=== PATIENT | male | born 1945 | race Caucasian/White ===

== ENCOUNTER 2017-04-14 13:18 | Emergency (ER) | payer MEDICARE, MEDICAID ==
[2017-04-14] MEDS ORDERED: Sodium Chloride 0.9% 10 ML Syringe FLUSH PRN (13:59)
[2017-04-14] MEDS ORDERED: Ondansetron 4 MG/2 ML SDV IVPUSH ONE (14:01)
--- NOTE | 2017-04-14 14:50 | CT ---
CT chest Technique: Multiple axial sections were obtained from above the lung apices inferiorly through the lung bases. Intravenous contrast was not utilized. Comparison: No previous chest imaging. Findings: Small mediastinal lymph nodes are seen which appear within normal limits. Mild ectasia of the ascending aorta is seen with AP dimension of 3.6 cm. No pericardial thickening is seen. Emphysematous changes are present. Slight scarring is noted within the medial right lung base. 2 small subpleural nodules are seen within the right middle lobe with largest measuring 6 mm. Very small subpleural nodule is noted within the left upper chest measuring 2 mm. Lungs otherwise are clear. No pulmonary contusion is seen. No pleural effusions or pneumothorax are identified. Bone window settings were reviewed which shows no acute rib fracture. Vertebral body heights appear maintained on the reconstructed sagittal images. Impression: 1. Several small subpleural nodules. Follow-up chest CT could be obtained in 9 months to confirm stability. Follow-up would occur in December,. 2. Emphysematous change. 3. Nothing acute is seen on CT study of the chest. Diagnostic code #9 CT abdomen and pelvis Technique: Multiple axial sections were obtained from above the dome of the diaphragm inferiorly through the pubic symphysis. Intravenous and oral contrast were not utilized. Comparison: No prior abdominal imaging. Findings: Multiple low density lesions are identified within the right and left lobes of the liver which have Hounsfield unit measurements of cysts. Largest cyst is located within the dome of the right lobe measuring approximately 2.8 cm. Spleen appears within normal limits. Adrenal glands are unremarkable. Pancreas appears normal. Cyst is identified within the right kidney measuring 2.1 cm. No hydronephrosis is seen of either kidney. Pancreas appears within normal limits. Small calcifications are seen within the head of the pancreas which is likely incidental. Gallbladder shows no calcified gallstones. Aorta contains mild atherosclerotic change but no aneurysm is seen. No retroperitoneal adenopathy or mesenteric abnormalities are seen. Diverticuli are seen within the descending and sigmoid colon without inflammatory change of diverticulitis. Right-sided bladder diverticula is identified which contains a small calcified bladder stone. This bladder diverticula measures 2.5 cm. Other calcifications are seen within the dependent portion of the bladder. Prostate gland is enlarged and contains calcifications. No inflammatory change or free fluid is seen. Appendix not visualized with certainty. Bone window settings appear within normal limits for the patient's age. Impression: 1. Multiple liver cysts. Cyst within the right kidney. 2. Other incidental findings. 3. Nothing acute is seen on CT study of the abdomen and pelvis. Diagnostic code #2
[2017-04-14] MEDS ORDERED: Sodium Chloride 0.9% 1,000 ML IV ONE ×2 (16:41→18:00)
[2017-04-14] MEDS ORDERED: cefTRIAXone 2 GM in Sodium Chloride 0.9% 100 ML IV ONE (17:38)
--- NOTE | 2017-04-14 17:59 | EDM.PDOC ---
ED HPI GENERAL MEDICAL PROBLEM - General Chief Complaint: Genitourinary Problem Stated Complaint: POSS. KIDNEY INFECTION Time Seen by Provider: 04/14/17 13:52 Source of Information: Reports: Patient History Limitations: Reports: No Limitations - History of Present Illness INITIAL COMMENTS - FREE TEXT/NARRATIVE: The patient presents from [facility] with acute renal failure. The patient says about 1 week ago he developed diarrhea and nausea. He had very little appetite. She has gotten weak with it. He also had a horse squish his chest in a trailer a few days after these symptoms started. He has left sided chest pain and upper abdominal pain with movement with that. He had no fever, chills , cough, congestion, runny nose, vomiting or dysuria. His baseline creatinine from October was 1.59. He has never had trouble with his kidneys as far as he knows. Onset: Gradual Duration: Week(s): (1) Location: Reports: Chest, Abdomen Quality: Reports: Sharp Severity: Mild Improves with: Reports: Immobilization Worsens with: Reports: Movement Context: Reports: Trauma Associated Symptoms: Reports: Chest Pain, Nausea/Vomiting. Denies: Fever/Chills , Headaches, Shortness of Breath Treatments SYSTEM DESIGNER: Reports: Other (see below) Other Treatments SYSTEM DESIGNER: labs, CXR - Related Data Allergies Allergy/AdvReac Type Severity Reaction Status Date / Time No Known Allergies Allergy Verified 04/14/17 14:00 Past Medical History HEENT History: Reports: Impaired Vision, Other (See Below) Other HEENT History: waxy ears Cardiovascular History: Reports: High Cholesterol, Hypertension, Other (See Below) Other Cardiovascular History: artery thickening, PAD Gastrointestinal History: Reports: GERD Genitourinary History: Reports: Prostate Disorder, Other (See Below) Other Genitourinary History: currently in renal failure Musculoskeletal History: Reports: Arthritis Psychiatric History: Reports: Depression - Past Surgical History HEENT Surgical History: Reports: Tonsillectomy Social & Family History - Family History Family Medical History: Noncontributory - Tobacco Use Smoking Status *Q: Never Smoker - Caffeine Use Caffeine Use: Reports: Coffee - Recreational Drug Use Recreational Drug Use: No ED ROS GENERAL - Review of Systems Review Of Systems: See Below Constitutional: Reports: Malaise, Weakness, Fatigue. Denies: Fever, Chills HEENT: Reports: No Symptoms Respiratory: Reports: No Symptoms Cardiovascular: Reports: Chest Pain Endocrine: Reports: No Symptoms GI/Abdominal: Reports: Abdominal Pain, Diarrhea, Nausea. Denies: Vomiting : Reports: No Symptoms Musculoskeletal: Reports: No Symptoms ED EXAM, GI/ABD - Physical Exam Exam: See Below Exam Limited By: No Limitations General Appearance: Alert, No Apparent Distress Ears: Normal External Exam Nose: Normal Inspection Head: Atraumatic, Normocephalic Neck: Normal Inspection Respiratory/Chest: No Respiratory Distress, Lungs Clear, Normal Breath Sounds, Other (Mild pain upon palpation to the left lateral chest) Cardiovascular: Regular Rate, Rhythm, No Edema, No Murmur GI/Abdominal Exam: Soft, No Organomegaly, No Mass, Tender (Mild tenderness to the left upper quadrant) Back Exam: Normal Inspection Extremities: Normal Inspection EKG INTERPRETATION EKG Date: 04/14/17 Time: 11:36 Rhythm: NSR Rate (Beats/Min): 65 [place]: Normal P-Wave: Present QRS: RBBB ST-T: Normal QT: Normal VT/PQ Interval: 1st degree HB Course - Vital Signs Last Recorded V/S: Last Vital Signs Temp 97.5 F 04/14/17 13:49 Pulse 62 04/14/17 13:49 Resp 20 04/14/17 13:49 BP 105/60 04/14/17 13:49 Pulse Ox 97 04/14/17 13:49 - Orders/Labs/Meds Orders: Active Orders 24 hr Category Date Time Status Cardiac Monitoring [RC] . DIRECTED Care 04/14/17 13:59 Active Peripheral IV Care [RC] . DIRECTED Care 04/14/17 14:00 Active CULTURE URINE [RM] Stat Lab 04/14/17 17:34 Uncollected Sodium Chloride 0.9% [Normal Saline] 1,000 ml Med 04/14/17 18:00 Active IV ONETIME Sodium Chloride 0.9% [Saline Flush] Med 04/14/17 13:59 Active 10 ml FLUSH ASDIRECTED PRN cefTRIAXone [Rocephin] 2 gm Med 04/14/17 17:38 Active Sodium Chloride 0.9% [Normal Saline] 100 ml IV ONETIME Peripheral IV Insertion Adult [OM.PC] Stat Oth 04/14/17 13:59 Ordered Medication Orders Ceftriaxone Sodium 2 gm/ (Sodium Chloride) 100 mls @ 200 mls/hr IV ONETIME ONE Stop: 04/14/17 18:07 Sodium Chloride (Normal Saline) 1,000 mls @ 1,000 mls/hr IV ONETIME ONE Stop: 04/14/17 18:59 Sodium Chloride (Saline Flush) 10 ml FLUSH ASDIRECTED PRN PRN Reason: Keep Vein Open Last Admin: 04/14/17 15:00 Dose: 10 ml Labs: Laboratory Tests 04/14/17 04/14/17 04/14/17 Range/Units 15:00 15:00 16:36 WBC 13.22 H (4.23-9.07) K/mm3 RBC 4.71 (4.63-6.08) M/mm3 Hgb 14.2 (13.7-17.5) gm/L Hct 41.5 (40.1-51.0) % MCV 88.1 (79.0-92.2) fl MCH 30.1 (25.7-32.2) pg MCHC 34.2 (32.2-35.5) g/dl RDW Std Deviation 43.8 (35.1-43.9) fL Plt Count 296 (163-337) K/mm3 MPV 10.1 (9.4-12.3) fl Neut % (Auto) 73.5 H (34.0-67.9) % Lymph % (Auto) 12.3 L (21.8-53.1) % [place] % (Auto) 12.3 H (5.3-12.2) % Eos % (Auto) 0.2 L (0.8-7.0) Baso % (Auto) 0.2 (0.1-1.2) % Neut # (Auto) 9.73 H (1.78-5.38) K/mm3 Lymph # (Auto) 1.62 (1.32-3.57) K/mm3 [place] # (Auto) 1.62 H (0.30-0.82) K/mm3 Eos # (Auto) 0.03 L (0.04-0.54) K/mm3 Baso # (Auto) 0.02 (0.01-0.08) K/mm3 Manual Slide Review Normal smear Sodium 140 (136-145) mEq/L Potassium 5.3 H (3.5-5.1) mEq/L Chloride 110 H (98-107) mEq/L Carbon Dioxide 18 L (21-32) mEq/L Anion Gap 17.3 H (5-15) BUN 104 H (7-18) mg/dL Creatinine 4.0 H (0.7-1.3) mg/dL Est Cr Clr Drug Dosing 17.18 mL/min Estimated GFR (MDRD) 15 (>60) mL/min BUN/Creatinine Ratio 26.0 H (14-18) Glucose 112 (80-115) mg/dL Calcium 9.0 (8.5-10.1) mg/dL Total Bilirubin 0.5 (0.2-1.0) mg/dL AST 8 L (15-37) U/L ALT 19 (16-63) U/L Alkaline Phosphatase 41 L (46-116) U/L Troponin I < 0.017 (0.00-0.056) ng/mL Total Protein 7.7 (6.4-8.2) g/dl Albumin 3.0 L (3.4-5.0) g/dl Globulin 4.7 gm/dL Albumin/Globulin Ratio 0.6 L (1-2) Lipase 4911 H (73-393) U/L Urine Color Yellow (Yellow) Urine Appearance Clear (Clear) Urine pH 5.5 (5.0-8.0) Ur Specific [place] 1.020 (1.005-1.030) Urine Protein Trace H (Negative) Urine Glucose (UA) Negative (Negative) Urine Ketones Negative (Negative) Urine Occult Blood Negative (Negative) Urine Nitrite Negative (Negative) Urine Bilirubin Negative (Negative) Urine Urobilinogen 0.2 (0.2-1.0) Ur Leukocyte Esterase 1+ H (Negative) Urine RBC 0-5 (0-5) /hpf Urine WBC 50-75 H (0-5) /hpf Urine WBC Clumps Few (NOT SEEN) /hpf Ur Epithelial Cells 0-5 (0-5) /hpf Urine Bacteria Many H (FEW) /hpf Broad Casts Few Urine Mucus Not seen (FEW) /hpf Meds: Medications Generic Name Dose Route Start Last Admin Trade Name Freq PRN Reason Stop Dose Admin Ceftriaxone Sodium 2 gm/ 100 mls @ 200 mls/hr 04/14/17 17:38 Sodium Chloride IV 04/14/17 18:07 ONETIME ONE Sodium Chloride 1,000 mls @ 1,000 mls/hr 04/14/17 18:00 Normal Saline IV 04/14/17 18:59 ONETIME ONE Sodium Chloride 10 ml 04/14/17 13:59 04/14/17 15:00 Saline Flush FLUSH 10 ml ASDIRECTED PRN Administration Keep Vein Open Discontinued Medications Generic Name Dose Route Start Last Admin Trade Name Rebecca PRN Reason Stop Dose Admin Sodium Chloride 1,000 mls @ 1,000 mls/hr 04/14/17 16:41 04/14/17 17:00 Normal Saline IV 04/14/17 17:40 1,000 mls/hr ONETIME ONE Administration Ondansetron HCl 4 mg 04/14/17 14:01 04/14/17 15:12 Zofran IVPUSH 04/14/17 14:02 Not Given ONETIME ONE - Re-Assessments/Exams Free Text/Narrative Re-Assessment/Exam: 04/14/17 18:04 I ordered an IV NS 1L bolus, WBC is elevated at 13.22. His K was elevated at 5.3. His anion gap was elevated at 17.3. His creatinine was elevated at 4.0. His baseline creatinine was 1.5 in October. His GFR was 15 and in October that was 43. His troponin was negative. His lipase was 4911. His CT shows several small subpleural nodules. Follow-up chest CT could be obtained in 9 months to confirm stability. Emphysematous change. Nothing acute is seen on CT study of the chest. His UA shows a UTI. I have ordered rocephin 2 grams IV. I feel he needs to be admitted. I called out hospitalist Dr Gomez and she felt he would be better served in [place] where they have nephrology if needed. I called [facility] in [place] and talked with Dr Mares and she accepted the patient. I have ordered another liter of NS. Departure - Departure Time of Disposition: 18:10 Disposition: DC/Tfer to Acute Hospital 02 Condition: Serious Clinical Impression: UTI, Urinary tract infectious disease, Hyperkalemia Renal failure Qualifiers: Renal failure chronicity: acute Acute renal failure type: unspecified Qualified Code(s): N17.9 - Acute kidney failure, unspecified Pancreatitis Qualifiers: Chronicity: acute Pancreatitis type: other Acute pancreatitis complication: no infection or necrosis Qualified Code(s): K85.80 - Other acute pancreatitis without necrosis or infection - Discharge Information Referrals: Kalee Willson NP [Primary Care Provider] - Forms: ED Department Discharge - My Orders Last 24 Hours: My Active Orders 04/14/17 13:59 Cardiac Monitoring [RC] . DIRECTED Sodium Chloride 0.9% [Saline Flush] 10 ml FLUSH ASDIRECTED PRN Peripheral IV Insertion Adult [OM.PC] Stat 04/14/17 14:00 Peripheral IV Care [RC] . DIRECTED 04/14/17 17:34 CULTURE URINE [RM] Stat 04/14/17 17:38 cefTRIAXone [Rocephin] 2 gm Sodium Chloride 0.9% [Normal Saline] 100 ml IV ONETIME 04/14/17 18:00 Sodium Chloride 0.9% [Normal Saline] 1,000 ml IV ONETIME - Assessment/Plan Last 24 Hours: My Active Orders 04/14/17 13:59 Cardiac Monitoring [RC] . DIRECTED Sodium Chloride 0.9% [Saline Flush] 10 ml FLUSH ASDIRECTED PRN Peripheral IV Insertion Adult [OM.PC] Stat 04/14/17 14:00 Peripheral IV Care [RC] . DIRECTED 04/14/17 17:34 CULTURE URINE [RM] Stat 04/14/17 17:38 cefTRIAXone [Rocephin] 2 gm Sodium Chloride 0.9% [Normal Saline] 100 ml IV ONETIME 04/14/17 18:00 Sodium Chloride 0.9% [Normal Saline] 1,000 ml IV ONETIME
== END 2017-04-14 19:20 ==
LOC: JD.ED 13:18
DX: N17.9 Acute kidney failure, unspecified (principal); E87.5 Hyperkalemia; N39.0 Urinary tract infection, site not specified; K85.80 Other acute pancreatitis without necrosis or infection; I10 Essential (primary) hypertension; E78.00 Pure hypercholesterolemia, unspecified
CPT/HCPCS: 36415; 71250; 74176; 80053; 81001; 83690; 84484; 85025; 87086; 87088; 87186; 96361; 96365; 99285; J0696; J7030; J7040; J7050; 93010

== ENCOUNTER → 2018-09-07 | Day surgery (SDC) | payer MEDICARE, MEDICAID ==
[~2018-09-07] MED LIST: Lactated Ringers 1,000 ML IV SCH; Lactated Ringers 1,000 ML ONE; Lidocaine 1% 4 ML ONE; Lidocaine 1%/Sod Bicarbonate in NS 8.4% 1 ML Syringe IDERM PRN; Phenylephrine/Normal Saline 100 MCG/ML 10 ML Syringe ONE; Propofol 200 MG/20 ML SDV ONE; Sodium Chloride 0.9% 10 ML Syringe FLUSH PRN; fentaNYL 100 MCG/2 ML SDV ONE
--- NOTE | 2018-09-07 07:56 | PCM.HP ---
H&P History of Present Illness - General Date of Service: 09/07/18 Source of Information: Patient History Limitations: Reports: No Limitations - History of Present Illness Initial Comments - Free Text/Narative: 73 year old male here today for positive fecal immunochemical test. He has a history of heart disease and chronic kidney disease. He has seen bright red blood in the past with mild proctodynia on wiping. He has normal hgb/hct on testing. He has never had a colonoscopy. He denies any melena. No chest pain on exertion. He has had elevated pulse today and has been fasting for about 36 hours due to another procedure. Abdomen Pain Score (Numeric/FACES): 0 - Related Data Allergies/Adverse Reactions: Allergies Allergy/AdvReac Type Severity Reaction Status Date / Time No Known Allergies Allergy Verified 09/06/18 12:18 Home Medications: Home Meds Aspirin 81 mg PO DAILY 04/14/17 [History] Escitalopram [Lexapro] 20 mg PO DAILY 04/14/17 [History] Fenofibrate 160 mg PO DAILY 04/14/17 [History] Lisinopril/Hydrochlorothiazide [Lisinopril-Hctz 20-12.5 mg Tab] 1 each PO DAILY 04/14/17 [History] Metoprolol Tartrate 100 mg PO BID 04/14/17 [History] Omeprazole 20 mg PO TID 04/14/17 [History] Pravastatin [Pravachol] 20 mg PO DAILY 04/14/17 [History] Tamsulosin [Flomax] 0.4 mg PO BID 04/14/17 [History] cloNIDine [Catapres] 0.1 mg PO BEDTIME 04/14/17 [History] Escitalopram [Lexapro] 10 mg PO DAILY 09/06/18 [History] Indomethacin [Indocin SR] 75 mg PO DAILY 09/06/18 [History] Past Medical History HEENT History: Reports: Impaired Vision, Other (See Below) Other HEENT History: waxy ears Cardiovascular History: Reports: High Cholesterol, Hypertension, Other (See Below) Other Cardiovascular History: PAD, AORTIC STENOSIS, IRREGULAR HEART BEAT AT TIMES Respiratory History: Reports: None Gastrointestinal History: Reports: GERD, Pancreatitis, Other (See Below) Other Gastrointestinal History: HEPATIC CYST, GASTRIC ULCER Genitourinary History: Reports: BPH, Prostate Disorder, Other (See Below) Other Genitourinary History: currently in renal failure, CKD III APPLICATIONS INSTRUCTOR History: Reports: None Musculoskeletal History: Reports: Arthritis, Osteoarthritis, Other (See Below) Other Musculoskeletal History: LOWER LEG FRACTURE Neurological History: Reports: Migraines Psychiatric History: Reports: Anxiety, Depression, Other (See Below) Other Psychiatric History: ETOH abuse Endocrine/Metabolic History: Reports: Obesity/BMI 30+ Hematologic History: Reports: Blood Transfusion(s) Immunologic History: Reports: None Oncologic (Cancer) History: Reports: None Dermatologic History: Reports: None - Past Surgical History Head Surgeries/Procedures: Reports: None HEENT Surgical History: Reports: Tonsillectomy Cardiovascular Surgical History: Reports: None Respiratory Surgical History: Reports: None GI Surgical History: Reports: None Female Surgical History: Reports: None Male Surgical History: Reports: None Endocrine Surgical History: Reports: None Neurological Surgical History: Reports: None Oncologic Surgical History: Reports: None Dermatological Surgical History: Reports: None Social & Family History - Family History Family Medical History: Noncontributory - Tobacco Use Smoking Status *Q: Former Smoker Used Tobacco, but Quit: Yes Month/Year Tobacco Last Used: 1966 - Caffeine Use Caffeine Use: Reports: Coffee, Soda - Recreational Drug Use Recreational Drug Use: No Drug Use in Last 12 Months: No H&P Review of Systems - Review of Systems: Review Of Systems: See Below General: Denies: Fever, Chills Pulmonary: Denies: Wheezing, Cough Cardiovascular: Denies: Chest Pain, Palpitations, Orthopnea Gastrointestinal: Reports: Hematochezia Exam - Exam Exam: See Below - Vital Signs Vital Signs: Last Vital Signs Temp 36.7 C 09/07/18 06:35 Pulse 122 H 09/07/18 06:35 Resp 16 09/07/18 06:35 BP 93/62 09/07/18 06:35 Pulse Ox 98 09/07/18 06:35 Weight: 97.522 kg - Exam General: Alert, Oriented Lungs: Clear to Auscultation, Normal Respiratory Effort Cardiovascular: Tachycardia GI/Abdominal Exam: Normal Bowel Sounds, Soft, Non-Tender - Problem List (1) Positive fecal immunochemical test SNOMED Code(s): 70240858 ICD Code: R19.5 - OTHER FECAL ABNORMALITIES Status: Acute Current Visit: Yes (2) Hematochezia SNOMED Code(s): 958218704 ICD Code: K92.1 - MELENA Status: Acute Current Visit: Yes Problem List Initiated/Reviewed/Updated: Yes Orders Last 24hrs: Active Orders 24 hr Category Date Time Status EKG Documentation Completion [RC] ASDIRECTED Care 09/07/18 06:58 Active Peripheral IV Care [RC] . DIRECTED Care 09/07/18 00:01 Active Peripheral IV Care [RC] . DIRECTED Care 09/07/18 00:01 Active Verify Patient Consent Obtain [RC] ASDIRECTED Care 09/07/18 00:01 Active Verify Patient Consent Obtain [RC] ASDIRECTED Care 09/07/18 00:01 Active Lactated Ringers [Ringers, Lactated] 1,000 ml Med 09/07/18 00:01 Active IV ASDIRECTED Lidocaine 1%/Sod Bicarbonate [Buffered Lidocaine 1% in Med 09/07/18 00:01 Active NS 8.4%] 0.25 ml IDERM ONETIME PRN Sodium Chloride 0.9% [Saline Flush] Med 09/07/18 00:01 Active 10 ml FLUSH ASDIRECTED PRN Medication Administration Instruction [OM.PC] Routine Oth 09/07/18 00:01 Ordered Medication Administration Instruction [OM.PC] Routine Oth 09/07/18 00:01 Ordered Peripheral IV Insertion Adult [OM.PC] Routine Oth 09/07/18 00:01 Ordered Peripheral IV Insertion Adult [OM.PC] Routine Oth 09/07/18 00:01 Ordered EKG 12 Lead [EK] Stat Ther 09/07/18 06:58 Ordered Medication Orders Lactated Ringer's (Ringers, Lactated) 1,000 mls @ 125 mls/hr IV ASDIRECTED CLAUDIA Stop: 09/07/18 23:00 Last Admin: 09/07/18 06:45 Dose: 125 mls/hr Lidocaine/Sodium Bicarbonate (Buffered Lidocaine 1% In Ns 8.4%) 0.25 ml IDERM ONETIME PRN PRN Reason: Prior to IV Start Stop: 09/07/18 18:00 Last Admin: 09/07/18 06:45 Dose: 0.25 ml Sodium Chloride (Saline Flush) 10 ml FLUSH ASDIRECTED PRN PRN Reason: Keep Vein Open Stop: 09/07/18 18:00 Assessment/Plan Comment:: 73 year old male with positive fit test and hematochezia. Benefits/risks of colonoscopy discussed with patient, risks of anesthesia, injury and bleeding were discussed. Patient consented to diagnostic colonoscopy.
--- NOTE | 2018-09-07 08:21 | PCM.OPNOTE ---
- General Post-Op/Procedure Note Date of Surgery/Procedure: 09/07/18 Operative Procedure(s): Diagnostic Colonoscopy Findings: Diverticulosis sigmoid colon, anal fissure Pre Op Diagnosis: Positive fecal immunochemical test, hematochezia Post-Op Diagnosis: Sigmoid Diverticulosis, Anal Fissure Anesthesia Technique: MAC Primary Surgeon: James Ghotra Anesthesia Provider: Delisa Horne EBL in mLs: 0 Complications: None Condition: Good Free Text/Narrative:: After the patient gave verbal and written consent he was placed on blood pressure and pulse ox monitoring. A resting mild sinus tachycardia was noted and was stable throughout the entire procedure with no obvious waveform changes. He was given iv sedation which he tolerated well. Using direct observation an anal fissure was noted. The olympus colonoscope was inserted per rectum and advanced to the cecum without difficulty. THe ileocecal valve and appendiceal orfice were imaged documenting cecal intubation. The scope was slowly withdrawn and mucosal surfaces carefully examined. The prep was good, the views were good. Mild to moderate sigmoid diverticulosis was noted. THe scope was then retroflexed in the rectum and then removed. THe patient left the endoscopy suite in good condition. There were no complications. Next colonoscopy is recommended in 10 years for screening purposes.
--- NOTE | 2018-09-07 08:51 | PCM.PREANE ---
Preanesthetic Assessment - Anesthesia/Transfusion/Family Hx Anesthesia History: Prior Anesthesia Without Reaction Family History of Anesthesia Reaction: No - Review of Systems General: Chills Cardiovascular: Palpitations (PVCs) Gastrointestinal: No Symptoms Neurological: Other (TIA IN 2018 ) Other: Reports: Liver Problems (cyst on liver) - Physical Assessment NPO Status Date: 09/06/18 NPO Status Time: 22:30 O2 Sat by Pulse Oximetry: 97 Respiratory Rate: 16 Vital Signs: Last Vital Signs Temp 37.4 C 09/07/18 08:40 Pulse 122 H 09/07/18 06:35 Resp 16 09/07/18 08:40 BP 107/55 L 09/07/18 08:40 Pulse Ox 97 09/07/18 08:40 Height: 1.73 m Weight: 97.522 kg ASA Class: 3 Mental Status: Alert & Oriented x3 Airway Class: Mallampati = 2 Dentition: Reports: Broken Tooth/Teeth, Missing Tooth/Teeth (Black with significant decay. Mario states his teeth are rotting off and he doesn't even notice when the break off. 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 Dr. Ferrell compared to previous EKG. Rate elevated today. Metoprolol IV administered to a total of 5 mg decreased rate to 100. Dr. Mckeon visited with Darrell both would like to proceed today and will have Mario follow up with his primary care doctor for the tachycardia. - Allergies Allergies/Adverse Reactions: Allergies Allergy/AdvReac Type Severity Reaction Status Date / Time No Known Allergies Allergy Verified 09/06/18 12:18 - Anesthesia Plan Beta Latoya: Metoprolol Med Last Dose Date: 09/06/18 Med Last Dose Time: 16:30 - Acknowledgements Anesthesia Type Planned: MAC Pt an Appropriate Candidate for the Planned Anesthesia: Yes Alternatives and Risks of Anesthesia Discussed w Pt/Guardian: Yes Pt/Guardian Understands and Agrees with Anesthesia Plan: Yes PreAnesthesia Questionnaire HEENT History: Reports: Impaired Vision, Other (See Below) Other HEENT History: waxy ears Cardiovascular History: Reports: High Cholesterol, Hypertension, Other (See Below) Other Cardiovascular History: PAD, AORTIC STENOSIS, IRREGULAR HEART BEAT AT TIMES Respiratory History: Reports: None Gastrointestinal History: Reports: GERD, Pancreatitis, Other (See Below) Other Gastrointestinal History: HEPATIC CYST, GASTRIC ULCER Genitourinary History: Reports: BPH, Prostate Disorder, Other (See Below) Other Genitourinary History: currently in renal failure, CKD III CARDIOLOGY SPECIALIST History: Reports: None Musculoskeletal History: Reports: Arthritis, Osteoarthritis, Other (See Below) Other Musculoskeletal History: LOWER LEG FRACTURE Neurological History: Reports: Migraines Psychiatric History: Reports: Anxiety, Depression, Other (See Below) Other Psychiatric History: ETOH abuse Endocrine/Metabolic History: Reports: Obesity/BMI 30+ Hematologic History: Reports: Blood Transfusion(s) Immunologic History: Reports: None Oncologic (Cancer) History: Reports: None Dermatologic History: Reports: None - Past Surgical History Head Surgeries/Procedures: Reports: None HEENT Surgical History: Reports: Tonsillectomy Cardiovascular Surgical History: Reports: None Respiratory Surgical History: Reports: None GI Surgical History: Reports: None Female Surgical History: Reports: None Male Surgical History: Reports: None Endocrine Surgical History: Reports: None Neurological Surgical History: Reports: None Oncologic Surgical History: Reports: None Dermatological Surgical History: Reports: None - SUBSTANCE USE Smoking Status *Q: Former Smoker Recreational Drug Use History: No - HOME MEDS Home Medications: Home Meds Aspirin 81 mg PO DAILY 04/14/17 [History] Escitalopram [Lexapro] 20 mg PO DAILY 04/14/17 [History] Fenofibrate 160 mg PO DAILY 04/14/17 [History] Lisinopril/Hydrochlorothiazide [Lisinopril-Hctz 20-12.5 mg Tab] 1 each PO DAILY 04/14/17 [History] Metoprolol Tartrate 100 mg PO BID 04/14/17 [History] Omeprazole 20 mg PO TID 04/14/17 [History] Pravastatin [Pravachol] 20 mg PO DAILY 04/14/17 [History] Tamsulosin [Flomax] 0.4 mg PO BID 04/14/17 [History] cloNIDine [Catapres] 0.1 mg PO BEDTIME 04/14/17 [History] Escitalopram [Lexapro] 10 mg PO DAILY 09/06/18 [History] Indomethacin [Indocin SR] 75 mg PO DAILY 09/06/18 [History] - CURRENT (IN HOUSE) MEDS Current Meds: Current Medications Lactated Ringer's (Ringers, Lactated) 1,000 mls @ 125 mls/hr IV ASDIRECTED CLAUDIA Stop: 09/07/18 23:00 Last Admin: 09/07/18 06:45 Dose: 125 mls/hr Lidocaine/Sodium Bicarbonate (Buffered Lidocaine 1% In Ns 8.4%) 0.25 ml IDERM ONETIME PRN PRN Reason: Prior to IV Start Stop: 09/07/18 18:00 Last Admin: 09/07/18 06:45 Dose: 0.25 ml Sodium Chloride (Saline Flush) 10 ml FLUSH ASDIRECTED PRN PRN Reason: Keep Vein Open Stop: 09/07/18 18:00 Discontinued Medications Fentanyl (Sublimaze) Confirm Administered Dose 100 mcg .ROUTE .STK-MED ONE Stop: 09/07/18 07:19 Lactated Ringer's (Ringers, Lactated) 1,000 mls @ 125 mls/hr IV ASDIRECTED [facility] Stop: 07/13/18 23:00 Lidocaine HCl (Xylocaine-Mpf 1%) Confirm Administered Dose 4 mls @ as directed .ROUTE .STK-MED ONE Stop: 09/07/18 07:19 Lidocaine/Sodium Bicarbonate (Buffered Lidocaine 1% In Ns 8.4%) 0.25 ml IDERM ONETIME PRN PRN Reason: Prior to IV Start Stop: 07/13/18 18:00 Propofol (Diprivan 20 Ml) Confirm Administered Dose 400 mg .ROUTE .STK-MED ONE Stop: 09/07/18 07:18 Sodium Chloride (Saline Flush) 10 ml FLUSH ASDIRECTED PRN PRN Reason: Keep Vein Open Stop: 07/13/18 18:00
--- NOTE | 2018-09-07 09:03 | PCM48HPAN ---
Post Anesthesia Note - EVALUATION WITHIN 48HRS OF ANESTHETIC Vital Signs in Normal Range: Yes Patient Participated in Evaluation: Yes Respiratory Function Stable: Yes Airway Patent: Yes Cardiovascular Function Stable: Yes Hydration Status Stable: Yes Pain Control Satisfactory: Yes Nausea and Vomiting Control Satisfactory: Yes Mental Status Recovered: Yes Pulse Rate: 101 SaO2: 94 Resp Rate: 16 Temperature: 37.6 C Blood Pressure: 108/84
== END | disposition home or self-care (01) ==
LOC: JD.SDS 06:25
PROVIDERS: ATTEND Family Medicine
DX: K57.31 Diverticulosis of large intestine without perforation or abscess with bleeding (principal); K60.2 Anal fissure, unspecified; K21.9 Gastro-esophageal reflux disease without esophagitis; I73.9 Peripheral vascular disease, unspecified; I35.0 Nonrheumatic aortic (valve) stenosis; I12.9 Hypertensive chronic kidney disease with stage 1 through stage 4 chronic kidney disease, or unspecified chronic kidney disease; N18.3 Chronic kidney disease, stage 3 (moderate); E78.00 Pure hypercholesterolemia, unspecified; F41.9 Anxiety disorder, unspecified; F32.9 Major depressive disorder, single episode, unspecified; M19.90 Unspecified osteoarthritis, unspecified site; Z87.891 Personal history of nicotine dependence; Z79.82 Long term (current) use of aspirin; Z79.899 Other long term (current) drug therapy
CPT/HCPCS: 45378; 93005; J2001; J2370; J2704; J3010; J7120; 00813

== ENCOUNTER 2019-06-17 09:33 | Emergency (ER) | payer MEDICARE, MEDICAID ==
--- NOTE | 2019-06-17 10:54 | CR ---
Chest: Portable view of the chest was obtained. Comparison: No prior chest x-ray, previous chest CT of 04/14/17. Heart size and mediastinum are within normal limits for portable technique. Lungs are clear with no acute parenchymal change. Bony structures are grossly intact. Impression: 1. Nothing acute is appreciated on portable chest x-ray. Diagnostic code #1 This report was dictated in [place] Standard Time
--- NOTE | 2019-06-17 11:21 | EDM.PDOC ---
ED HPI GENERAL MEDICAL PROBLEM - General Chief Complaint: Chest Pain Stated Complaint: CHEST PAIN Time Seen by Provider: 06/17/19 09:53 Source of Information: Reports: Patient, RN Notes Reviewed History Limitations: Reports: No Limitations - History of Present Illness INITIAL COMMENTS - FREE TEXT/NARRATIVE: Patient is a 74-year-old male who presents to the ED for the evaluation of left- sided chest discomfort, and other complaints. The patient states that he has been experiencing left-sided chest pressure, that relieves by belching. He having some numbness to his right arm as well, but this went away after 10 to 15 minutes. He does state he has some lingering chronic neck issues that he was attributing to this. Patient states that he is not having any shortness of breath, any fevers chills, nausea or vomiting or diarrhea. Patient does note however that on Monday of this last week, he has been having increased stress in his life due to his disagreement with his monitoring manager regarding his support dog. Patient notes this is been ongoing since around December, and he states that tensions became heightened again this last weekend when his monitoring manager began hassling him about the dog. Patient was worried that he was going to get evicted and loses dog. He states he does have a history of anxiety and depression, he states that he was thinking about this all weekend, and he was having increased headaches, feelings of near syncope, and feeling like his heart was skipping beats throughout Monday and Monday. He notes that he did not come in for evaluation at this time, but states that the left-sided chest pressure bothered him enough today that he decided to come in for evaluation. Patient notes that he does have a leaky heart valve, and does have a gas dispatcher that he sees, Dr. Giron, but states that he had a pretty good checkup around 6 months ago. His primary care physician is Kalee Willson. - Related Data Allergies Allergy/AdvReac Type Severity Reaction Status Date / Time No Known Allergies Allergy Verified 09/06/18 12:18 Home Meds: Home Meds Aspirin 81 mg PO DAILY 04/14/17 [History] Escitalopram [Lexapro] 20 mg PO DAILY 04/14/17 [History] Fenofibrate 160 mg PO DAILY 04/14/17 [History] Lisinopril/Hydrochlorothiazide [Lisinopril-Hctz 20-12.5 mg Tab] 1 each PO DAILY 04/14/17 [History] Metoprolol Tartrate 100 mg PO BID 04/14/17 [History] Omeprazole 20 mg PO TID 04/14/17 [History] Pravastatin [Pravachol] 20 mg PO DAILY 04/14/17 [History] Tamsulosin [Flomax] 0.4 mg PO BID 04/14/17 [History] cloNIDine [Catapres] 0.1 mg PO BEDTIME 04/14/17 [History] Escitalopram [Lexapro] 10 mg PO DAILY 09/06/18 [History] Indomethacin [Indocin SR] 75 mg PO DAILY 09/06/18 [History] Past Medical History HEENT History: Reports: Impaired Vision, Other (See Below) Other HEENT History: waxy ears Cardiovascular History: Reports: High Cholesterol, Hypertension, Other (See Below) Other Cardiovascular History: PAD, AORTIC STENOSIS, IRREGULAR HEART BEAT AT TIMES Gastrointestinal History: Reports: GERD, Pancreatitis, Other (See Below) Other Gastrointestinal History: HEPATIC CYST, GASTRIC ULCER Genitourinary History: Reports: BPH, Prostate Disorder, Other (See Below) Other Genitourinary History: currently in renal failure, CKD III Musculoskeletal History: Reports: Arthritis, Osteoarthritis, Other (See Below) Other Musculoskeletal History: LOWER LEG FRACTURE Neurological History: Reports: Migraines Psychiatric History: Reports: Anxiety, Depression, Other (See Below) Other Psychiatric History: ETOH abuse Endocrine/Metabolic History: Reports: Obesity/BMI 30+ Hematologic History: Reports: Blood Transfusion(s) - Infectious Disease History Infectious Disease History: Reports: Measles - Past Surgical History HEENT Surgical History: Reports: Tonsillectomy Social & Family History - Family History Family Medical History: Noncontributory - Tobacco Use Smoking Status *Q: Never Smoker Second Hand Smoke Exposure: No - Caffeine Use Caffeine Use: Reports: Coffee, Soda - Recreational Drug Use Recreational Drug Use: No ED ROS GENERAL - Review of Systems Review Of Systems: See Below Constitutional: Denies: Fever, Chills Respiratory: Denies: Shortness of Breath Cardiovascular: Reports: Chest Pain (L sided chest pressure), Lightheadedness ( feelings of pre-syncope). Denies: Dyspnea on Exertion, Edema GI/Abdominal: Denies: Diarrhea, Nausea, Vomiting Neurological: Reports: Headache (throughout weekend, not present now.), Syncope (feelings of pre-syncope). Denies: Confusion, Trouble Speaking, Difficulty Walking Psychiatric: Reports: Anxiety, Depression ED EXAM, GENERAL - Physical Exam Exam: See Below Exam Limited By: No Limitations General Appearance: Alert, WD/WN, No Apparent Distress Ears: Normal External Exam Nose: Normal Inspection Throat/Mouth: Normal Inspection, Normal Lips, Normal Teeth, Normal Gums, Normal Oropharynx, Normal Voice, No Airway Compromise Head: Atraumatic, Normocephalic Neck: Normal Inspection Respiratory/Chest: No Respiratory Distress, Lungs Clear, Normal Breath Sounds, No Accessory Muscle Use, Chest Non-Tender Cardiovascular: Normal Peripheral Pulses, Regular Rate, Rhythm, No Edema, No Murmur Peripheral Pulses: 3+: Radial (L), Radial (R) GI/Abdominal: Normal Bowel Sounds, Soft, Non-Tender, No Distention, No Mass Extremities: Normal Inspection, Normal Capillary Refill Neurological: Alert, Oriented, Normal Cognition, No Motor/Sensory Deficits Psychiatric: Normal Affect, Normal Mood Skin Exam: Warm, Dry, Intact, Normal Color, No Rash EKG INTERPRETATION EKG Date: 06/17/19 Time: 09:59 Rhythm: NSR Rate (Beats/Min): 69 [place]: Normal P-Wave: Present QRS: RBBB ST-T: Normal QT: Normal Comparison: NA - No Prior EKG EKG Interpretation Comments: No acute ischemic changes appreciated by myself or Dr. Swann. Course - Vital Signs Last Recorded V/S: Last Vital Signs Temp 97.6 F 06/17/19 09:46 Pulse 70 06/17/19 12:32 Resp 18 06/17/19 12:32 BP 110/86 06/17/19 12:32 Pulse Ox 91 L 06/17/19 12:32 - Orders/Labs/Meds Orders: Active Orders 24 hr Category Date Time Status EKG 12 Lead [EKG Documentation Completion] [RC] STAT Care 06/17/19 09:54 Active EKG Documentation Completion [RC] STAT Care 06/17/19 11:01 Active Labs: Laboratory Tests 06/17/19 06/17/19 06/17/19 Range/Units 10:05 10:05 10:05 WBC 11.99 H (4.23-9.07) K/mm3 RBC 5.10 (4.63-6.08) M/mm3 Hgb 15.2 (13.7-17.5) gm/dl Hct 47.0 (40.1-51.0) % MCV 92.2 D (79.0-92.2) fl MCH 29.8 (25.7-32.2) pg MCHC 32.3 (32.2-35.5) g/dl RDW Std Deviation 46.5 H (35.1-43.9) fL Plt Count 239 (163-337) K/mm3 MPV 10.0 (9.4-12.3) fl Neut % (Auto) 78.5 H (34.0-67.9) % Lymph % (Auto) 10.8 L (21.8-53.1) % Murray % (Auto) 9.0 (5.3-12.2) % Eos % (Auto) 0.6 L (0.8-7.0) Baso % (Auto) 0.2 (0.1-1.2) % Neut # (Auto) 9.42 H (1.78-5.38) K/mm3 Lymph # (Auto) 1.29 L (1.32-3.57) K/mm3 Murray # (Auto) 1.08 H (0.30-0.82) K/mm3 Eos # (Auto) 0.07 (0.04-0.54) K/mm3 Baso # (Auto) 0.02 (0.01-0.08) K/mm3 Manual Slide Review Abnormal smear PT 10.4 (9.7-12.0) SECONDS INR 0.95 Sodium 137 (136-145) mEq/L Potassium 3.8 D (3.5-5.1) mEq/L Chloride 103 (98-107) mEq/L Carbon Dioxide 26 (21-32) mEq/L Anion Gap 11.8 (5-15) BUN 24 H D (7-18) mg/dL Creatinine 1.5 H (0.7-1.3) mg/dL Est Cr Clr Drug Dosing 43.07 mL/min Estimated GFR (MDRD) 46 (>60) mL/min BUN/Creatinine Ratio 16.0 (14-18) Glucose 99 (83-115) mg/dL Calcium 9.2 (8.5-10.1) mg/dL Magnesium 1.8 (1.8-2.4) mg/dl Total Bilirubin 0.4 (0.2-1.0) mg/dL AST 13 L (15-37) U/L ALT 23 (16-63) U/L Alkaline Phosphatase 44 L (46-116) U/L Troponin I < 0.017 (0.00-0.056) ng/mL NT-Pro-B Natriuret Pep (0-125) pg/mL Total Protein 7.1 (6.4-8.2) g/dl Albumin 3.1 L (3.4-5.0) g/dl Globulin 4.0 gm/dL Albumin/Globulin Ratio 0.8 L (1-2) 06/17/19 Range/Units 10:05 WBC (4.23-9.07) K/mm3 RBC (4.63-6.08) M/mm3 Hgb (13.7-17.5) gm/dl Hct (40.1-51.0) % MCV (79.0-92.2) fl MCH (25.7-32.2) pg MCHC (32.2-35.5) g/dl RDW Std Deviation (35.1-43.9) fL Plt Count (163-337) K/mm3 MPV (9.4-12.3) fl Neut % (Auto) (34.0-67.9) % Lymph % (Auto) (21.8-53.1) % Murray % (Auto) (5.3-12.2) % Eos % (Auto) (0.8-7.0) Baso % (Auto) (0.1-1.2) % Neut # (Auto) (1.78-5.38) K/mm3 Lymph # (Auto) (1.32-3.57) K/mm3 Murray # (Auto) (0.30-0.82) K/mm3 Eos # (Auto) (0.04-0.54) K/mm3 Baso # (Auto) (0.01-0.08) K/mm3 Manual Slide Review PT (9.7-12.0) SECONDS INR Sodium (136-145) mEq/L Potassium (3.5-5.1) mEq/L Chloride (98-107) mEq/L Carbon Dioxide (21-32) mEq/L Anion Gap (5-15) BUN (7-18) mg/dL Creatinine (0.7-1.3) mg/dL Est Cr Clr Drug Dosing mL/min Estimated GFR (MDRD) (>60) mL/min BUN/Creatinine Ratio (14-18) Glucose (83-115) mg/dL Calcium (8.5-10.1) mg/dL Magnesium (1.8-2.4) mg/dl Total Bilirubin (0.2-1.0) mg/dL AST (15-37) U/L ALT (16-63) U/L Alkaline Phosphatase (46-116) U/L Troponin I (0.00-0.056) ng/mL NT-Pro-B Natriuret Pep 1546 H (0-125) pg/mL Total Protein (6.4-8.2) g/dl Albumin (3.4-5.0) g/dl Globulin gm/dL Albumin/Globulin Ratio (1-2) Meds: Medications Discontinued Medications Generic Name Dose Route Start Last Admin Trade Name Rebecca PRN Reason Stop Dose Admin Furosemide 40 mg 06/17/19 12:18 Lasix PO 06/17/19 12:19 ONETIME ONE - Re-Assessments/Exams Free Text/Narrative Re-Assessment/Exam: 06/17/19 11:21 Patient presents to the ED for the evaluation of a few different complaints. I do suspect that his symptoms were likely due to anxiety in nature, as he states that he did not have any symptoms before he had this disagreement with his property management accountant on Monday. EKG does appear to be within normal limits, there is a lot of baseline artifact however I do not have an EKG to support this. There is a right bundle branch block apparent, but no obvious acute ischemic changes. There are nonspecific ST changes appreciated by myself and Dr. Swann. Labs are mostly still pending, the CBC is unremarkable. White blood cell count is mildly elevated at 11.99, but I would assume this is due to a stress reaction as the patient does not have any other complaints or symptoms. Chest x-ray also shows no sign of any acute processes. 06/17/19 12:03 Labs are back, and demonstrate no acute abnormalities that need emergent attention today. Patient was most likely having some increased anxiety due to his argument with his land measurer. We will have him follow-up with his regular provider as needed for further management. BNP came back mildly elevated at over 1500. He will receive 1 oral dose of Lasix today, 40 mg for management of this, and have him directed to be followed up with his regular provider, for further evaluation and management of this. Repeat EKG was not much different than the first EKG. Departure - Departure Time of Disposition: 12:04 Disposition: Home, Self-Care 01 Condition: Fair Clinical Impression: Chest discomfort, Anxiety as acute reaction to exceptional stress Instructions: Mindfulness-Based Stress Reduction Referrals: Kalee Willson NP [Primary Care Provider] - Forms: ED Department Discharge Additional Instructions: You were evaluated in the ER today regarding your left-sided chest discomfort, and other complaints. Laboratory evaluation demonstrated no acute abnormalities that would need further evaluation in this emergency department. Your marker for fluid retention was mildly elevated, you received 1 dose of p.o. Lasix in the ER today , recommend that you follow-up with your primary care provider, and have your labs be checked in a few days time, to see if this is going down, to see maybe if you need to be put on a diuretic long-term. Your symptoms are most likely due to increased anxiety over the argument with your land measurer regarding your support animal. You were given a handout for anxiety reducing exercises, please try to read this and perform as needed. If you are having any other worsening symptoms or concerns, please do not hesitate to return to the ER. Sepsis Event Note - Evaluation Sepsis Screening Result: No Definite Risk - Focused Exam Vital Signs: Vital Signs Pulse Resp BP Pulse Ox 06/17/19 12:32 70 18 110/86 91 L Date Exam was Performed: 06/17/19 Time Exam was Performed: 22:16 - My Orders Last 24 Hours: My Active Orders 06/17/19 09:54 EKG 12 Lead [EKG Documentation Completion] [RC] STAT 06/17/19 11:01 EKG Documentation Completion [RC] STAT - Assessment/Plan Last 24 Hours: My Active Orders 06/17/19 09:54 EKG 12 Lead [EKG Documentation Completion] [RC] STAT 06/17/19 11:01 EKG Documentation Completion [RC] STAT
[2019-06-17] MEDS ORDERED: Furosemide 40 MG Tab PO ONE (12:18)
== END 2019-06-17 12:37 | disposition home or self-care (01) ==
LOC: JD.ED 09:33
DX: F41.9 Anxiety disorder, unspecified (principal); F43.0 Acute stress reaction; R07.89 Other chest pain; E78.00 Pure hypercholesterolemia, unspecified; F32.9 Major depressive disorder, single episode, unspecified; N40.0 Benign prostatic hyperplasia without lower urinary tract symptoms; K21.9 Gastro-esophageal reflux disease without esophagitis; I12.9 Hypertensive chronic kidney disease with stage 1 through stage 4 chronic kidney disease, or unspecified chronic kidney disease; N18.3 Chronic kidney disease, stage 3 (moderate); M19.90 Unspecified osteoarthritis, unspecified site; E66.9 Obesity, unspecified; Z68.35 Body mass index [BMI] 35.0-35.9, adult; Z79.82 Long term (current) use of aspirin; Z79.899 Other long term (current) drug therapy
CPT/HCPCS: 36415; 71045; 71045-26; 80053; 83735; 83880; 84484; 85025; 85610; 93005; 93010; 99284; 99285-25

== ENCOUNTER 2021-03-12 12:53 | Inpatient (IN) | payer MEDICARE, MEDICAID ==
[2021-03-12] MEDS ORDERED: Sodium Chloride 0.9% 10 ML Syringe FLUSH PRN (14:02)
--- NOTE | 2021-03-12 14:15 | EDM.PDOC ---
ED HPI GENERAL MEDICAL PROBLEM - General Chief Complaint: Respiratory Problem Stated Complaint: COVID + IN PAST/HAS PNEUMONIA Time Seen by Provider: 03/12/21 13:21 Source of Information: Reports: Patient, Provider (Kalee Willson), RN Notes Reviewed History Limitations: Reports: No Limitations - History of Present Illness INITIAL COMMENTS - FREE TEXT/NARRATIVE: Patient is a 75-year-old male who presents to the ER via direction of his primary care provider, Kalee Willson for further evaluation. Patient states that he was seen by Kalee Willson on Monday for illness, he had a rapid Covid screen and a chest x-ray and was diagnosed with a pneumonia sent home on doxycycline and prednisone for this. States that he has been taking the doxycycline and prednisone as prescribed but nothing seems to be getting much better. He has been sick for about 1 week now. He does have issues with his kidneys, and states that he is having some minor back pain with this as well. He previously had COVID-19 at beginning of this year, and did get monoclonal antibodies for this. States that he has also had the [employer] vaccine in October. States he has felt feverish, he did get a little bit short of breath last night, so much that he felt somewhat panicked. Has had no nausea/vomiting/diarrhea. Lower Back Pain Score (Numeric/FACES): 2 - Related Data Allergies Allergy/AdvReac Type Severity Reaction Status Date / Time No Known Allergies Allergy Verified 03/12/21 13:26 Home Meds: Home Meds Aspirin 81 mg PO DAILY 04/14/17 [History] Fenofibrate 160 mg PO DAILY 04/14/17 [History] Lisinopril/Hydrochlorothiazide [Lisinopril-Hctz 20-12.5 mg Tab] 1 each PO DAILY 04/14/17 [History] Metoprolol Tartrate 100 mg PO BID 04/14/17 [History] Omeprazole 20 mg PO TID 04/14/17 [History] Pravastatin [Pravachol] 20 mg PO DAILY 04/14/17 [History] Tamsulosin [Flomax] 0.4 mg PO BID 04/14/17 [History] Escitalopram [Lexapro] 30 mg PO DAILY 09/06/18 [History] Doxycycline [Vibramycin] 100 mg PO DAILY 03/12/21 [History] Finasteride 5 mg PO DAILY 03/12/21 [History] predniSONE [Prednisone] 20 mg PO BID 03/12/21 [History] Past Medical History HEENT History: Reports: Impaired Vision, Other (See Below) Other HEENT History: excessive cerumen in ears Cardiovascular History: Reports: High Cholesterol, Hypertension, Other (See Below) Other Cardiovascular History: PAD, AORTIC STENOSIS, IRREGULAR HEART BEAT AT TIMES Gastrointestinal History: Reports: GERD, Pancreatitis, Other (See Below) Other Gastrointestinal History: HEPATIC CYST, GASTRIC ULCER Genitourinary History: Reports: BPH, Prostate Disorder, Renal Disease (CKD III) Musculoskeletal History: Reports: Arthritis, Osteoarthritis, Other (See Below) Other Musculoskeletal History: LOWER LEG FRACTURE Neurological History: Reports: Migraines Psychiatric History: Reports: Addiction, Anxiety, Depression, Other (See Below) Other Psychiatric History: ETOH abuse Endocrine/Metabolic History: Reports: Obesity/BMI 30+ Hematologic History: Reports: Blood Transfusion(s) Immunologic History: Reports: None - Infectious Disease History Infectious Disease History: Reports: Measles, Novel Coronavirus (06/2020) - Past Surgical History HEENT Surgical History: Reports: Tonsillectomy Social & Family History - Family History Family Medical History: No Pertinent Family History - Tobacco Use Tobacco Use Status *Q: Never Tobacco User Second Hand Smoke Exposure: No - Caffeine Use Caffeine Use: Reports: Coffee - Recreational Drug Use Recreational Drug Use: No ED ROS GENERAL - Review of Systems Review Of Systems: Comprehensive ROS is negative, except as noted in HPI. ED EXAM, GENERAL - Physical Exam Exam: See Below Exam Limited By: No Limitations General Appearance: Alert, WD/WN, No Apparent Distress Respiratory/Chest: No Respiratory Distress, Lungs Clear, Normal Breath Sounds, No Accessory Muscle Use, Chest Non-Tender Cardiovascular: Normal Peripheral Pulses, Regular Rate, Rhythm, No Edema GI/Abdominal: Normal Bowel Sounds, Soft, Non-Tender, No Distention, No Mass Extremities: Normal Inspection, Normal Capillary Refill #1 Interpretation EKG Date: 03/12/21 Time: 16:01 Rhythm: NSR Rate (Beats/Min): 57 [place]: Normal P-Wave: Present QRS: RBBB ST-T: Normal QT: Normal Comparison: No Change EKG Interpretation Comments: No obvious ischemia or acute ST changes noted, reviewed by myself and Dr. Pablo. Course - Vital Signs Last Recorded V/S: Last Vital Signs Temp 96.8 F L 03/12/21 13:13 Pulse 70 03/12/21 13:13 Resp 23 H 03/12/21 13:13 BP 154/83 H 03/12/21 13:13 Pulse Ox 95 03/12/21 17:30 - Orders/Labs/Meds Orders: Active Orders 24 hr Category Date Time Status Admission Status [Patient Status] [ADT] Routine ADT 03/12/21 17:47 Ordered Oxygen Therapy, ED [RC] ASDIRECTED Care 03/12/21 17:35 Ordered Peripheral IV Care [RC] . DIRECTED Care 03/12/21 14:03 Active Sodium Chloride 0.9% [Saline Flush] Med 03/12/21 14:02 Active 10 ml FLUSH ASDIRECTED PRN Peripheral IV Insertion Adult [OM.PC] Routine Oth 03/12/21 14:02 Ordered Medication Orders Sodium Chloride (Sodium Chloride 0.9% 10 Ml Syringe) 10 ml FLUSH ASDIRECTED PRN PRN Reason: Keep Vein Open Last Admin: 03/12/21 16:44 Dose: 10 ml Documented by: FRANKLIN Labs: Laboratory Tests 03/12/21 03/12/21 03/12/21 Range/Units 14:27 14:27 14:27 WBC 14.89 H (4.23-9.07) K/mm3 RBC 4.44 L (4.63-6.08) M/mm3 Hgb 13.6 L D (13.7-17.5) gm/dl Hct 42.2 (40.1-51.0) % MCV 95.0 H (79.0-92.2) fl MCH 30.6 (25.7-32.2) pg MCHC 32.2 (32.2-35.5) g/dl RDW Std Deviation 50.3 H (35.1-43.9) fL Plt Count 206 (163-337) K/mm3 MPV 11.0 (9.4-12.3) fl Neut % (Auto) 85.2 H (34.0-67.9) % Lymph % (Auto) 4.1 L (21.8-53.1) % Sherman % (Auto) 9.9 (5.3-12.2) % Eos % (Auto) 0 L (0.8-7.0) Baso % (Auto) 0.1 (0.1-1.2) % Neut # (Auto) 12.69 H (1.78-5.38) K/mm3 Lymph # (Auto) 0.61 L (1.32-3.57) K/mm3 Sherman # (Auto) 1.48 H (0.30-0.82) K/mm3 Eos # (Auto) 0.00 L (0.04-0.54) K/mm3 Baso # (Auto) 0.01 (0.01-0.08) K/mm3 D-Dimer, Quantitative 0.48 (0.19-0.50) mg/L Sodium 144 (136-145) mEq/L Potassium 4.7 (3.5-5.1) mEq/L Chloride 110 H (98-107) mEq/L Carbon Dioxide 26 (21-32) mEq/L Anion Gap 12.7 (5-15) BUN 64 H D (7-18) mg/dL Creatinine 2.0 H (0.7-1.3) mg/dL Est Cr Clr Drug Dosing TNP Estimated GFR (MDRD) 33 (>60) mL/min BUN/Creatinine Ratio 32.0 H (14-18) Glucose 111 H (70-99) mg/dL Calcium 8.4 L (8.5-10.1) mg/dL Total Bilirubin 0.6 (0.2-1.0) mg/dL AST 10 L (15-37) U/L ALT 15 L (16-63) U/L Alkaline Phosphatase 31 L (46-116) U/L Troponin I (0.00-0.056) ng/mL C-Reactive Protein 1.3 H* (<1.0) mg/dL NT-Pro-B Natriuret Pep (0-125) pg/mL Total Protein 6.8 (6.4-8.2) g/dl Albumin 2.9 L (3.4-5.0) g/dl Globulin 3.9 gm/dL Albumin/Globulin Ratio 0.7 L (1-2) Influenza Type A RNA (NEGATIVE) Influenza Type B RNA (NEGATIVE) SARS-CoV-2 RNA (ADAM) (NEGATIVE) 03/12/21 03/12/21 03/12/21 Range/Units 14:27 14:27 14:35 WBC (4.23-9.07) K/mm3 RBC (4.63-6.08) M/mm3 Hgb (13.7-17.5) gm/dl Hct (40.1-51.0) % MCV (79.0-92.2) fl MCH (25.7-32.2) pg MCHC (32.2-35.5) g/dl RDW Std Deviation (35.1-43.9) fL Plt Count (163-337) K/mm3 MPV (9.4-12.3) fl Neut % (Auto) (34.0-67.9) % Lymph % (Auto) (21.8-53.1) % Sherman % (Auto) (5.3-12.2) % Eos % (Auto) (0.8-7.0) Baso % (Auto) (0.1-1.2) % Neut # (Auto) (1.78-5.38) K/mm3 Lymph # (Auto) (1.32-3.57) K/mm3 Sherman # (Auto) (0.30-0.82) K/mm3 Eos # (Auto) (0.04-0.54) K/mm3 Baso # (Auto) (0.01-0.08) K/mm3 D-Dimer, Quantitative (0.19-0.50) mg/L Sodium (136-145) mEq/L Potassium (3.5-5.1) mEq/L Chloride (98-107) mEq/L Carbon Dioxide (21-32) mEq/L Anion Gap (5-15) BUN (7-18) mg/dL Creatinine (0.7-1.3) mg/dL Est Cr Clr Drug Dosing Estimated GFR (MDRD) (>60) mL/min BUN/Creatinine Ratio (14-18) Glucose (70-99) mg/dL Calcium (8.5-10.1) mg/dL Total Bilirubin (0.2-1.0) mg/dL AST (15-37) U/L ALT (16-63) U/L Alkaline Phosphatase (46-116) U/L Troponin I 0.084 H* (0.00-0.056) ng/mL C-Reactive Protein (<1.0) mg/dL NT-Pro-B Natriuret Pep > 75112 H (0-125) pg/mL Total Protein (6.4-8.2) g/dl Albumin (3.4-5.0) g/dl Globulin gm/dL Albumin/Globulin Ratio (1-2) Influenza Type A RNA Negative (NEGATIVE) Influenza Type B RNA Negative (NEGATIVE) SARS-CoV-2 RNA (ADAM) Negative (NEGATIVE) Meds: Medications Generic Name Dose Route Start Last Admin Trade Name Freq PRN Reason Stop Dose Admin Sodium Chloride 10 ml 03/12/21 14:02 03/12/21 16:44 Sodium Chloride 0.9% 10 Ml Syringe FLUSH 10 ml ASDIRECTED PRN Administration Keep Vein Open Discontinued Medications Generic Name Dose Route Start Last Admin Trade Name Freq PRN Reason Stop Dose Admin Furosemide 40 mg 03/12/21 16:48 03/12/21 17:10 Furosemide 40 Mg/4 Ml Vial IVPUSH 03/12/21 16:49 40 mg NOW ONE Administration - Re-Assessments/Exams Free Text/Narrative Re-Assessment/Exam: 03/12/21 14:19 Patient presents to the ER for evaluation of his ongoing respiratory issues. We will recheck him for COVID-19 at this time, repeat labs. Review of the patient's chest x-rays from [place] from both 03/08 and today, do demonstrate a slightly worsening pneumonia, the patient states that he is not feeling much better. 03/12/21 15:20 Laboratory evaluation demonstrates a elevated white count at 14.89 with 85% ne utrophils. I do realize patient has been on prednisone therapy, but with the increase in neutrophils indicating a left shift likely this is ongoing bacterial pneumonia as well. Patient's CMP is impressive for creatinine elevated at 2.0 with a GFR low at 33. Patient CRP is elevated at 1.3, the patient's BNP is markedly elevated at over 35,000. We will go ahead and get a EKG, and a troponin level as well as the patient did state he was maybe having some epigastric discomfort/pressure along with the shortness of breath, to rule out further cardiac etiology. 03/12/21 15:42 Patient's COVID-19/influenza screen were negative at today's visit. Due to him having symptoms for about 7 days, and receiving a second negative test, I think we can clinically rule out COVID-19 this time, which is reassuring. Still awaiting some other labs and EKG for ongoing cardiac rule out. This could be ongoing pneumonia versus acute CHF exacerbation. 03/12/21 15:49 Patient's troponin is elevated at 0.084, D-dimer is within normal limits at 0.48. I do believe that the elevated troponin could be likely due to heart strain due to the patient's markedly elevated BNP. Due to the patient's multiple issues, I am going to try to see if we can have him hospitalized. Looks as if he has ongoing pneumonia, acute on chronic renal failure, and acute CHF exacerbation. Departure - Departure Time of Disposition: 16:30 Disposition: Admitted As Inpatient 68 Condition: Good Clinical Impression: Pneumonia Qualifiers: Pneumonia type: due to unspecified organism Laterality: bilateral Lung location: unspecified part of lung Qualified Code(s): J18.9 - Pneumonia, unspecified organism Acute exacerbation of CHF (congestive heart failure) Qualifiers: Heart failure type: unspecified Qualified Code(s): I50.9 - Heart failure, unspecified Acute on chronic renal failure Qualifiers: Acute renal failure type: unspecified Chronic kidney disease stage: stage 3 (moderate) Chronic kidney disease stage 3 subtype: stage 3b (GFR 30-44) Qualified Code(s): N17.9 - Acute kidney failure, unspecified; N18.32 - Chronic kidney disease, stage 3b - Discharge Information Referrals: Kalee Willson NP [Primary Care Provider] - Forms: ED Department Discharge Sepsis Event Note (ED) - Evaluation Sepsis Screening Result: No Definite Risk - Focused Exam Vital Signs: Vital Signs Temp Pulse Resp BP Pulse Ox Pulse Ox 03/12/21 17:30 83 L 95 03/12/21 13:13 96.8 F L 70 23 H 154/83 H 90 L - My Orders Last 24 Hours: My Active Orders 03/12/21 14:02 Sodium Chloride 0.9% [Saline Flush] 10 ml FLUSH ASDIRECTED PRN Peripheral IV Insertion Adult [OM.PC] Routine 03/12/21 14:03 Peripheral IV Care [RC] . DIRECTED 03/12/21 17:35 Oxygen Therapy, ED [RC] ASDIRECTED 03/12/21 17:47 Admission Status [Patient Status] [ADT] Routine - Assessment/Plan Last 24 Hours: My Active Orders 03/12/21 14:02 Sodium Chloride 0.9% [Saline Flush] 10 ml FLUSH ASDIRECTED PRN Peripheral IV Insertion Adult [OM.PC] Routine 03/12/21 14:03 Peripheral IV Care [RC] . DIRECTED 03/12/21 17:35 Oxygen Therapy, ED [RC] ASDIRECTED 03/12/21 17:47 Admission Status [Patient Status] [ADT] Routine
[2021-03-12 15:24] LABS: CORONAVIRUS COVID-19 NAA NEGATIVE (NEGATIVE)
[2021-03-12] MEDS ORDERED: Furosemide 40 MG/4 ML VIAL IVPUSH ONE (16:48)
--- NOTE | 2021-03-12 17:17 | CR ---
Chest: PA and lateral views of the chest were obtained. Comparison: Prior chest x-ray of 06/17/19. Heart size is slightly enlarged. Upper mediastinum is within normal limits. Diffuse increased density is seen within the right upper and lower lung as well as within the left lower lung. Bony structures show nothing acute for the patient's age. Impression: 1. Diffuse increased density within the right chest as well as left lower lung. Findings may represent severe pneumonia or COVID pneumonia. Please correlate. Diagnostic code #3
[2021-03-12] MEDS ORDERED: Ondansetron 4 MG/2 ML SDV IV PRN (19:37)
[2021-03-12] MEDS ORDERED: Albuterol/Ipratropium 3.0-0.5 MG/3 ML Neb Soln NEB PRN (19:37)
[2021-03-12] MEDS ORDERED: Albuterol 0.083% 2.5 MG/3 ML Neb Soln NEB PRN (19:37)
[2021-03-12] MEDS ORDERED: Acetaminophen 325 MG Tab PO PRN (19:37)
--- NOTE | 2021-03-12 19:37 | PCM.HP.2 ---
H&P History of Present Illness - General Date of Service: 03/12/21 Admit Problem/Dx: Admission Diagnosis/Problem Admission Diagnosis/Problem Pneumonia - History of Present Illness Initial Comments - Free Text/Narative: 75-year-old male with history of severe aortic stenosis for the last couple of years presented to the emergency department after being seen by his primary care provider for follow-up evaluation of his pneumonia diagnosed on 03/08/2021. Patient started feeling ill on 03/05/2021 and was seen at his primary care providers on 03/08. He was started on doxycycline and prednisone. Patient was seen in follow-up today and he was feeling worse with increased cough and blood- tinged sputum. Chest x-ray showed progression of the patchy infiltrates and consolidation in the perihilar right midlung and lung bases bilaterally, greater on the left. In the emergency department he was noted to be hypoxemic and started on O2. Patient appeared to be somewhat confused about his health care because he thought he had been on prednisone for the last 4 years. I see no record of that in his chart and the only prednisone appears to be prescribed on 03/08/2021 secondary to his pneumonia. In the emergency department white count was noted to be 14.9 with 85% neutrophils. BUN was elevated at 64 with a creatinine of 2.0 and estimated GFR of 33. This appears to be stable since his appointment on the where his BUN was 47 and creatinine was 2.12. Previous creatinine on file ranged from 1.5 in May 2021 as high as 4.0 in March 2017. Also of note on his blood work his troponin was mildly elevated at 0.084, CRP 1.3, proBNP greater than 35,000, albumin 2.9. SARS-CoV-2 RNA was negative as well as influenza type a and B. Patient states that he did have Covid back in late winter early spring and was given monoclonal antibodies. He also received the J&J vaccine. Patient was given Lasix in the emergency department. Lower Back Pain Score (Numeric/FACES): 2 - Related Data Allergies/Adverse Reactions: Allergies Allergy/AdvReac Type Severity Reaction Status Date / Time No Known Allergies Allergy Verified 03/12/21 13:26 Home Medications: Home Meds Aspirin 81 mg PO DAILY 04/14/17 [History] Fenofibrate 160 mg PO DAILY 04/14/17 [History] Lisinopril/Hydrochlorothiazide [Lisinopril-Hctz 20-12.5 mg Tab] 1 each PO DAILY 04/14/17 [History] Metoprolol Tartrate 100 mg PO BID 04/14/17 [History] Omeprazole 20 mg PO TID 04/14/17 [History] Pravastatin [Pravachol] 20 mg PO DAILY 04/14/17 [History] Tamsulosin [Flomax] 0.4 mg PO BID 04/14/17 [History] Escitalopram [Lexapro] 30 mg PO DAILY 09/06/18 [History] Doxycycline [Vibramycin] 100 mg PO DAILY 03/12/21 [History] Finasteride 5 mg PO DAILY 03/12/21 [History] predniSONE [Prednisone] 20 mg PO BID 03/12/21 [History] Past Medical History HEENT History: Reports: Impaired Vision, Other (See Below) Other HEENT History: excessive cerumen in ears Cardiovascular History: Reports: High Cholesterol, Hypertension, Other (See Below) Other Cardiovascular History: PAD, AORTIC STENOSIS, IRREGULAR HEART BEAT AT TIMES Gastrointestinal History: Reports: GERD, Pancreatitis, Other (See Below) Other Gastrointestinal History: HEPATIC CYST, GASTRIC ULCER Genitourinary History: Reports: BPH, Prostate Disorder, Renal Disease Other Genitourinary History: currently in renal failure, CKD III Musculoskeletal History: Reports: Arthritis, Osteoarthritis, Other (See Below) Other Musculoskeletal History: LOWER LEG FRACTURE Neurological History: Reports: Migraines Psychiatric History: Reports: Addiction, Anxiety, Depression, Other (See Below) Other Psychiatric History: ETOH abuse Endocrine/Metabolic History: Reports: Obesity/BMI 30+ Hematologic History: Reports: Blood Transfusion(s) Immunologic History: Reports: None - Infectious Disease History Infectious Disease History: Reports: Measles, Novel Coronavirus - Past Surgical History Head Surgeries/Procedures: Reports: None HEENT Surgical History: Reports: Tonsillectomy Cardiovascular Surgical History: Reports: None Respiratory Surgical History: Reports: None GI Surgical History: Reports: None Male Surgical History: Reports: None Endocrine Surgical History: Reports: None Neurological Surgical History: Reports: None Oncologic Surgical History: Reports: None Dermatological Surgical History: Reports: None Social & Family History - Family History Family Medical History: No Pertinent Family History - Tobacco Use Tobacco Use Status *Q: Never Tobacco User Second Hand Smoke Exposure: No - Caffeine Use Caffeine Use: Reports: Coffee - Recreational Drug Use Recreational Drug Use: No H&P Review of Systems - Review of Systems: Review Of Systems: Comprehensive ROS is negative, except as noted in HPI. Exam - Exam Exam: See Below - Vital Signs Vital Signs: Last Vital Signs Temp 97.3 F 03/12/21 18:42 Pulse 75 03/12/21 18:42 Resp 25 H 03/12/21 18:42 BP 139/85 03/12/21 19:24 Pulse Ox 96 03/12/21 19:06 Weight: 224 lb 6.4 oz - Exam Quality Assessment: Supplemental Oxygen General: Alert, Oriented, 4 HEENT: Conjunctiva Clear, Mucosa Moist & [place] Neck: Supple, Trachea Midline, 2 Lungs: Normal Respiratory Effort, Crackles, Rhonchi (Bibasilar) Cardiovascular: Regular Rate, Regular Rhythm, Systolic Murmur GI/Abdominal Exam: Normal Bowel Sounds, Soft, Non-Tender, No Organomegaly, No Distention, No Abnormal Bruit, No Mass Extremities: Normal Inspection, Non-Tender, Normal Capillary Refill, Pedal Edema (1+) Peripheral Pulses: 1+: Posterior Tibial (L), Posterior Tibial (R), Dorsalis Pedis (L), Dorsalis Pedis (R) Skin: Warm, Dry, Intact Neuro Extensive - Mental Status: Alert, Oriented x3, Normal Mood/Affect, Normal Cognition, Memory Intact Neuro Extensive - Motor, Sensory, Reflexes: CN II-XII Intact Psychiatric: Alert - Patient Data Lab Results Last 24 hrs: Laboratory Results - last 24 hr 03/12/21 03/12/21 03/12/21 Range/Units 14:27 14:27 14:27 WBC 14.89 H (4.23-9.07) K/mm3 RBC 4.44 L (4.63-6.08) M/mm3 Hgb 13.6 L D (13.7-17.5) gm/dl Hct 42.2 (40.1-51.0) % MCV 95.0 H (79.0-92.2) fl MCH 30.6 (25.7-32.2) pg MCHC 32.2 (32.2-35.5) g/dl RDW Std Deviation 50.3 H (35.1-43.9) fL Plt Count 206 (163-337) K/mm3 MPV 11.0 (9.4-12.3) fl Neut % (Auto) 85.2 H (34.0-67.9) % Lymph % (Auto) 4.1 L (21.8-53.1) % [place] % (Auto) 9.9 (5.3-12.2) % Eos % (Auto) 0 L (0.8-7.0) Baso % (Auto) 0.1 (0.1-1.2) % Neut # (Auto) 12.69 H (1.78-5.38) K/mm3 Lymph # (Auto) 0.61 L (1.32-3.57) K/mm3 [place] # (Auto) 1.48 H (0.30-0.82) K/mm3 Eos # (Auto) 0.00 L (0.04-0.54) K/mm3 Baso # (Auto) 0.01 (0.01-0.08) K/mm3 D-Dimer, Quantitative 0.48 (0.19-0.50) mg/L Sodium 144 (136-145) mEq/L Potassium 4.7 (3.5-5.1) mEq/L Chloride 110 H (98-107) mEq/L Carbon Dioxide 26 (21-32) mEq/L Anion Gap 12.7 (5-15) BUN 64 H D (7-18) mg/dL Creatinine 2.0 H (0.7-1.3) mg/dL Est Cr Clr Drug Dosing TNP Estimated GFR (MDRD) 33 (>60) mL/min BUN/Creatinine Ratio 32.0 H (14-18) Glucose 111 H (70-99) mg/dL Calcium 8.4 L (8.5-10.1) mg/dL Total Bilirubin 0.6 (0.2-1.0) mg/dL AST 10 L (15-37) U/L ALT 15 L (16-63) U/L Alkaline Phosphatase 31 L (46-116) U/L Troponin I (0.00-0.056) ng/mL C-Reactive Protein 1.3 H* (<1.0) mg/dL NT-Pro-B Natriuret Pep (0-125) pg/mL Total Protein 6.8 (6.4-8.2) g/dl Albumin 2.9 L (3.4-5.0) g/dl Globulin 3.9 gm/dL Albumin/Globulin Ratio 0.7 L (1-2) Influenza Type A RNA (NEGATIVE) Influenza Type B RNA (NEGATIVE) SARS-CoV-2 RNA (ADAM) (NEGATIVE) 03/12/21 03/12/21 03/12/21 Range/Units 14:27 14:27 14:35 WBC (4.23-9.07) K/mm3 RBC (4.63-6.08) M/mm3 Hgb (13.7-17.5) gm/dl Hct (40.1-51.0) % MCV (79.0-92.2) fl MCH (25.7-32.2) pg MCHC (32.2-35.5) g/dl RDW Std Deviation (35.1-43.9) fL Plt Count (163-337) K/mm3 MPV (9.4-12.3) fl Neut % (Auto) (34.0-67.9) % Lymph % (Auto) (21.8-53.1) % [place] % (Auto) (5.3-12.2) % Eos % (Auto) (0.8-7.0) Baso % (Auto) (0.1-1.2) % Neut # (Auto) (1.78-5.38) K/mm3 Lymph # (Auto) (1.32-3.57) K/mm3 [place] # (Auto) (0.30-0.82) K/mm3 Eos # (Auto) (0.04-0.54) K/mm3 Baso # (Auto) (0.01-0.08) K/mm3 D-Dimer, Quantitative (0.19-0.50) mg/L Sodium (136-145) mEq/L Potassium (3.5-5.1) mEq/L Chloride (98-107) mEq/L Carbon Dioxide (21-32) mEq/L Anion Gap (5-15) BUN (7-18) mg/dL Creatinine (0.7-1.3) mg/dL Est Cr Clr Drug Dosing Estimated GFR (MDRD) (>60) mL/min BUN/Creatinine Ratio (14-18) Glucose (70-99) mg/dL Calcium (8.5-10.1) mg/dL Total Bilirubin (0.2-1.0) mg/dL AST (15-37) U/L ALT (16-63) U/L Alkaline Phosphatase (46-116) U/L Troponin I 0.084 H* (0.00-0.056) ng/mL C-Reactive Protein (<1.0) mg/dL NT-Pro-B Natriuret Pep > 56911 H (0-125) pg/mL Total Protein (6.4-8.2) g/dl Albumin (3.4-5.0) g/dl Globulin gm/dL Albumin/Globulin Ratio (1-2) Influenza Type A RNA Negative (NEGATIVE) Influenza Type B RNA Negative (NEGATIVE) SARS-CoV-2 RNA (ADAM) Negative (NEGATIVE) Result Diagrams: 03/12/21 14:27 03/12/21 14:27 Imaging Impressions Last 24 hrs: Chest x-ray showed diffuse increased density within the right chest as well as the left lower lung. Also increased vasculature. This is consistent with pneumonia and CHF. Sepsis Event Note - Evaluation Sepsis Screening Result: Sepsis Risk - Focused Exam Vital Signs: Vital Signs Temp Pulse Resp BP Pulse Ox Pulse Ox 03/12/21 19:24 139/85 03/12/21 19:06 96 03/12/21 18:42 97.3 F 75 25 H 182/101 H 96 03/12/21 18:38 90 L 03/12/21 17:30 83 L 95 03/12/21 13:13 96.8 F L 70 23 H 154/83 H 90 L - Problem List (1) Acute exacerbation of CHF (congestive heart failure) SNOMED Code(s): 463300643, 85853295748000 ICD Code: I50.9 - HEART FAILURE, UNSPECIFIED Status: Acute Current Visit: Yes Qualifiers: Heart failure type: unspecified Qualified Code(s): I50.9 - Heart failure, unspecified (2) Acute on chronic renal failure SNOMED Code(s): 115598402 ICD Code: N17.9 - ACUTE KIDNEY FAILURE, UNSPECIFIED; N18.9 - CHRONIC KIDNEY DISEASE, UNSPECIFIED Status: Acute Current Visit: Yes Qualifiers: Acute renal failure type: unspecified Chronic kidney disease stage: stage 3 (moderate) Chronic kidney disease stage 3 subtype: stage 3b (GFR 30-44) Qualified Code(s): N17.9 - Acute kidney failure, unspecified; N18.32 - Chronic kidney disease, stage 3b (3) Pneumonia SNOMED Code(s): 593105215 ICD Code: J18.9 - PNEUMONIA, UNSPECIFIED ORGANISM Status: Acute Current Visit: Yes Qualifiers: Pneumonia type: due to unspecified organism Laterality: bilateral Lung location: unspecified part of lung Qualified Code(s): J18.9 - Pneumonia, unsp ecified organism Problem List Initiated/Reviewed/Updated: Yes Orders Last 24hrs: Active Orders 24 hr Category Date Time Status Patient Status [ADT] Routine ADT 03/12/21 19:10 Active Oxygen Therapy, ED [RC] ASDIRECTED Care 03/12/21 17:35 Active Sodium Chloride 0.9% [Saline Flush] Med 03/12/21 14:02 Active 10 ml FLUSH ASDIRECTED PRN Peripheral IV Insertion Adult [OM.PC] Routine Oth 03/12/21 14:02 Ordered Medication Orders Sodium Chloride (Sodium Chloride 0.9% 10 Ml Syringe) 10 ml FLUSH ASDIRECTED PRN PRN Reason: Keep Vein Open Last Admin: 03/12/21 16:44 Dose: 10 ml Documented by: FRANKLIN Assessment/Plan Comment:: 75-year-old male with history of severe aortic stenosis and failed outpatient treatment of community-acquired pneumonia admitted for exacerbation of CHF and pneumonia. Community acquired pneumonia, failed outpatient therapy with doxycycline and prednisone * Symptoms started on 03/05/2021 * Worsening symptoms over the last couple of days. * Complains of productive sputum with blood-tinged * White count increased to 14.5 with left shift. White count could be artificially elevated secondary to prednisone. * Treated with doxycycline * No blood cultures or antibiotics given in the emergency department Acute exacerbation of CHF Severe aortic stenosis * Unknown prior ejection fraction * Patient states he was supposed to have his aortic valve replaced last year. * Complains of multiple days since spring of having shortness of breath and feeling ill and fatigued. He attributed this to prolonged Covid syndrome. * Not currently on loop diuretic. * Home meds to include an STAR inhibitor, lisinopril, and beta-cynthia, metoprolol tartrate 100 mg twice daily. Acute on chronic renal insufficiency * Patient described a several year history of renal insufficiency and the oldest creatinine we have is 4.0 from 2017. * Creatinine 2.0 with estimated GFR of 33. * BUN is elevated at 64 suggesting some prerenal disease. Other active medical problems include BPH, hyperlipidemia, GERD, recurrent major depressive disorder, diverticulosis Plan * Admit to medical floor * Blood and sputum cultures, lactic acid, proBNP * Rocephin 2 g every 24 hours * Azithromycin 500 mg every 24 hours x3 * Solu-Medrol 40 mg IV every 12 hours * Lasix 40 mg IV twice daily. Adjust as necessary. * Strict I's and O's and daily weights. 1 urination after Lasix was already lost, therefore today's I's and O's will be off. * Echocardiogram on Monday since we do not have echocardiogram ability on the weekends. * Hold lisinopril and hydrochlorothiazide. * Reduce metoprolol tartrate to 50 mg twice daily. * Renally dose medications * Follow CBC, CMP, mag, CRP, periodic procalcitonin * Rectify home meds * Lovenox 30 mg subcu daily * CODE STATUS: Full code - Mortality Measure Prognosis:: Good
[2021-03-12] MEDS ORDERED: predniSONE 20 MG Tab PO SCH (21:00)
[2021-03-12] MEDS: cefTRIAXone 2 GM in Sodium Chloride 0.9% 100 ML IV SCH (21:03)
[2021-03-12] MEDS: Tamsulosin 0.4 MG Cap.ER PO SCH (21:08)
[2021-03-12] MEDS: methylPREDNISolone Sodium Succinate 40 MG/1 ML SDV IVPUSH SCH (21:11)
[2021-03-12] MEDS: Azithromycin 500 MG in Sodium Chloride 0.9% 250 ML IV SCH (21:33)
[2021-03-12] MEDS: Metoprolol Tartrate 50 MG Tab PO SCH (22:51)
[2021-03-13] MEDS ORDERED: traZODone 50 MG Tab PO ONE (01:22)
--- NOTE | 2021-03-13 07:41 | PCM.PN ---
- General Info Date of Service: 03/13/21 Admission Dx/Problem (Free Text): Admission Diagnosis/Problem Admission Diagnosis/Problem Pneumonia Subjective Update: The patient is a 75-year-old gentleman who was admitted to the emergency department secondary to pneumonia and congestive heart failure. 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 The patient today says that he feels much better. He does not use oxygen at home normally. The patient also has been tolerating his diet. The patient has denied any new pain. No new complaints today. Functional Status: Reports: Pain Controlled, Tolerating Diet - Review of Systems General: Reports: No Symptoms HEENT: Reports: No Symptoms Pulmonary: Reports: No Symptoms Cardiovascular: Reports: No Symptoms Gastrointestinal: Reports: No Symptoms Genitourinary: Reports: No Symptoms Musculoskeletal: Reports: No Symptoms Skin: Reports: No Symptoms Neurological: Reports: No Symptoms Psychiatric: Reports: No Symptoms - Patient Data Vitals - Most Recent: Last Vital Signs Temp 36.8 C 03/13/21 05:37 Pulse 52 L 03/13/21 05:37 Resp 14 03/13/21 05:37 BP 135/88 03/13/21 05:37 Pulse Ox 93 L 03/13/21 05:37 Weight - Most Recent: 101.106 kg I&O - Last 24 Hours: Intake & Output 03/12/21 03/13/21 03/13/21 22:59 06:59 14:59 Intake Total 350 410 Output Total 750 600 Balance -400 -190 Lab Results Last 24 Hours: Laboratory Results - last 24 hr 03/12/21 03/12/21 03/12/21 Range/Units 14:27 14:27 14:27 WBC 14.89 H (4.23-9.07) K/mm3 RBC 4.44 L (4.63-6.08) M/mm3 Hgb 13.6 L D (13.7-17.5) gm/dl Hct 42.2 (40.1-51.0) % MCV 95.0 H (79.0-92.2) fl MCH 30.6 (25.7-32.2) pg MCHC 32.2 (32.2-35.5) g/dl RDW Std Deviation 50.3 H (35.1-43.9) fL Plt Count 206 (163-337) K/mm3 MPV 11.0 (9.4-12.3) fl Neut % (Auto) 85.2 H (34.0-67.9) % Lymph % (Auto) 4.1 L (21.8-53.1) % [place] % (Auto) 9.9 (5.3-12.2) % Eos % (Auto) 0 L (0.8-7.0) Baso % (Auto) 0.1 (0.1-1.2) % Neut # (Auto) 12.69 H (1.78-5.38) K/mm3 Lymph # (Auto) 0.61 L (1.32-3.57) K/mm3 [place] # (Auto) 1.48 H (0.30-0.82) K/mm3 Eos # (Auto) 0.00 L (0.04-0.54) K/mm3 Baso # (Auto) 0.01 (0.01-0.08) K/mm3 D-Dimer, Quantitative 0.48 (0.19-0.50) mg/L Sodium 144 (136-145) mEq/L Potassium 4.7 (3.5-5.1) mEq/L Chloride 110 H (98-107) mEq/L Carbon Dioxide 26 (21-32) mEq/L Anion Gap 12.7 (5-15) BUN 64 H D (7-18) mg/dL Creatinine 2.0 H (0.7-1.3) mg/dL Est Cr Clr Drug Dosing TNP Estimated GFR (MDRD) 33 (>60) mL/min BUN/Creatinine Ratio 32.0 H (14-18) Glucose 111 H (70-99) mg/dL Lactic Acid (0.4-2.0) mmol/L Calcium 8.4 L (8.5-10.1) mg/dL Total Bilirubin 0.6 (0.2-1.0) mg/dL AST 10 L (15-37) U/L ALT 15 L (16-63) U/L Alkaline Phosphatase 31 L (46-116) U/L Troponin I (0.00-0.056) ng/mL C-Reactive Protein 1.3 H* (<1.0) mg/dL NT-Pro-B Natriuret Pep (0-125) pg/mL Total Protein 6.8 (6.4-8.2) g/dl Albumin 2.9 L (3.4-5.0) g/dl Globulin 3.9 gm/dL Albumin/Globulin Ratio 0.7 L (1-2) Influenza Type A RNA (NEGATIVE) Influenza Type B RNA (NEGATIVE) SARS-CoV-2 RNA (ADAM) (NEGATIVE) 03/12/21 03/12/21 03/12/21 Range/Units 14:27 14:27 14:35 WBC (4.23-9.07) K/mm3 RBC (4.63-6.08) M/mm3 Hgb (13.7-17.5) gm/dl Hct (40.1-51.0) % MCV (79.0-92.2) fl MCH (25.7-32.2) pg MCHC (32.2-35.5) g/dl RDW Std Deviation (35.1-43.9) fL Plt Count (163-337) K/mm3 MPV (9.4-12.3) fl Neut % (Auto) (34.0-67.9) % Lymph % (Auto) (21.8-53.1) % [place] % (Auto) (5.3-12.2) % Eos % (Auto) (0.8-7.0) Baso % (Auto) (0.1-1.2) % Neut # (Auto) (1.78-5.38) K/mm3 Lymph # (Auto) (1.32-3.57) K/mm3 [place] # (Auto) (0.30-0.82) K/mm3 Eos # (Auto) (0.04-0.54) K/mm3 Baso # (Auto) (0.01-0.08) K/mm3 D-Dimer, Quantitative (0.19-0.50) mg/L Sodium (136-145) mEq/L Potassium (3.5-5.1) mEq/L Chloride (98-107) mEq/L Carbon Dioxide (21-32) mEq/L Anion Gap (5-15) BUN (7-18) mg/dL Creatinine (0.7-1.3) mg/dL Est Cr Clr Drug Dosing Estimated GFR (MDRD) (>60) mL/min BUN/Creatinine Ratio (14-18) Glucose (70-99) mg/dL Lactic Acid (0.4-2.0) mmol/L Calcium (8.5-10.1) mg/dL Total Bilirubin (0.2-1.0) mg/dL AST (15-37) U/L ALT (16-63) U/L Alkaline Phosphatase (46-116) U/L Troponin I 0.084 H* (0.00-0.056) ng/mL C-Reactive Protein (<1.0) mg/dL NT-Pro-B Natriuret Pep > 41038 H (0-125) pg/mL Total Protein (6.4-8.2) g/dl Albumin (3.4-5.0) g/dl Globulin gm/dL Albumin/Globulin Ratio (1-2) Influenza Type A RNA Negative (NEGATIVE) Influenza Type B RNA Negative (NEGATIVE) SARS-CoV-2 RNA (ADAM) Negative (NEGATIVE) 03/12/21 Range/Units 20:10 WBC (4.23-9.07) K/mm3 RBC (4.63-6.08) M/mm3 Hgb (13.7-17.5) gm/dl Hct (40.1-51.0) % MCV (79.0-92.2) fl MCH (25.7-32.2) pg MCHC (32.2-35.5) g/dl RDW Std Deviation (35.1-43.9) fL Plt Count (163-337) K/mm3 MPV (9.4-12.3) fl Neut % (Auto) (34.0-67.9) % Lymph % (Auto) (21.8-53.1) % [place] % (Auto) (5.3-12.2) % Eos % (Auto) (0.8-7.0) Baso % (Auto) (0.1-1.2) % Neut # (Auto) (1.78-5.38) K/mm3 Lymph # (Auto) (1.32-3.57) K/mm3 [place] # (Auto) (0.30-0.82) K/mm3 Eos # (Auto) (0.04-0.54) K/mm3 Baso # (Auto) (0.01-0.08) K/mm3 D-Dimer, Quantitative (0.19-0.50) mg/L Sodium (136-145) mEq/L Potassium (3.5-5.1) mEq/L Chloride (98-107) mEq/L Carbon Dioxide (21-32) mEq/L Anion Gap (5-15) BUN (7-18) mg/dL Creatinine (0.7-1.3) mg/dL Est Cr Clr Drug Dosing Estimated GFR (MDRD) (>60) mL/min BUN/Creatinine Ratio (14-18) Glucose (70-99) mg/dL Lactic Acid 1.1 (0.4-2.0) mmol/L Calcium (8.5-10.1) mg/dL Total Bilirubin (0.2-1.0) mg/dL AST (15-37) U/L ALT (16-63) U/L Alkaline Phosphatase (46-116) U/L Troponin I (0.00-0.056) ng/mL C-Reactive Protein (<1.0) mg/dL NT-Pro-B Natriuret Pep (0-125) pg/mL Total Protein (6.4-8.2) g/dl Albumin (3.4-5.0) g/dl Globulin gm/dL Albumin/Globulin Ratio (1-2) Influenza Type A RNA (NEGATIVE) Influenza Type B RNA (NEGATIVE) SARS-CoV-2 RNA (ADAM) (NEGATIVE) Med Orders - Current: Current Medications Acetaminophen (Acetaminophen 325 Mg Tab) 650 mg PO Q4H PRN PRN Reason: Pain (Mild 1-3)/fever Albuterol (Albuterol 0.083% 2.5 Mg/3 Ml Neb Soln) 2.5 mg NEB Q2H PRN PRN Reason: Shortness Of Breath/wheezing Albuterol/Ipratropium (Albuterol/Ipratropium 3.0-0.5 Mg/3 Ml Neb Soln) 3 ml NEB Q4H PRN PRN Reason: Shortness Of Breath/wheezing Aspirin (Aspirin 81 Mg Tab.Chew) 81 mg PO DAILY [facility] Enoxaparin Sodium (Enoxaparin 30 Mg/0.3 Ml Syringe) 30 mg SUBCUT DAILY [facility] Finasteride (Finasteride 5 Mg Tab) 5 mg PO DAILY [facility] Ceftriaxone Sodium 2 gm/ (Sodium Chloride) 100 mls @ 200 mls/hr IV Q24H [facility] Last Admin: 03/12/21 21:03 Dose: 200 mls/hr Documented by: Azithromycin 500 mg/ Sodium (Chloride) 250 mls @ 250 mls/hr IV Q24H [facility] Stop: 03/14/21 21:59 Last Admin: 03/12/21 21:33 Dose: 250 mls/hr Documented by: Methylprednisolone Sodium Succinate (Methylprednisolone Sodium Succinate 40 Mg/1 Ml Sdv) 40 mg IVPUSH Q12H [facility] Last Admin: 03/12/21 21:11 Dose: 40 mg Documented by: Metoprolol Tartrate (Metoprolol Tartrate 50 Mg Tab) 50 mg PO Q12HR [facility] Last Admin: 03/12/21 22:51 Dose: 50 mg Documented by: Non-Formulary Medication (Escitalopram) 30 mg PO DAILY [facility] Ondansetron HCl (Ondansetron 4 Mg/2 Ml Sdv) 4 mg IV Q6H PRN PRN Reason: Nausea/Vomiting Pravastatin Sodium (Pravastatin 20 Mg Tab) 20 mg PO DAILY [facility] Sodium Chloride (Sodium Chloride 0.9% 10 Ml Syringe) 10 ml FLUSH ASDIRECTED PRN PRN Reason: Keep Vein Open Last Admin: 03/12/21 16:44 Dose: 10 ml Documented by: Tamsulosin HCl (Tamsulosin 0.4 Mg Cap.Er) 0.4 mg PO BID [facility] Last Admin: 03/12/21 21:08 Dose: 0.4 mg Documented by: Discontinued Medications Furosemide (Furosemide 40 Mg/4 Ml Vial) 40 mg IVPUSH NOW ONE Stop: 03/12/21 16:49 Last Admin: 03/12/21 17:10 Dose: 40 mg Documented by: Prednisone (Prednisone 20 Mg Tab) 20 mg PO BID [facility] Trazodone HCl (Trazodone 50 Mg Tab) 50 mg PO ONETIME ONE Stop: 03/13/21 01:23 Last Admin: 03/13/21 01:47 Dose: 50 mg Documented by: - Exam Quality Assessment: Supplemental Oxygen, DVT Prophylaxis General: Alert, Oriented, Cooperative, No Acute Distress HEENT: Pupils Equal, Pupils Reactive, EOMI, Mucous Membr. Moist/[place] (Very poor dentition) Neck: Supple, Trachea Midline Lungs: Normal Respiratory Effort, Rales Cardiovascular: Regular Rate, Regular Rhythm, Murmurs (Grade 3 out of 6 holosystolic murmur loudest at right sternal border, S1 and S2 heard) GI/Abdominal Exam: Normal Bowel Sounds, Soft, Non-Tender, No Distention (Male) Exam: Deferred Back Exam: Normal Inspection, Full Range of Motion Extremities: Normal Inspection, Normal Range of Motion, No Pedal Edema Skin: Warm, Dry, Intact Neurological: No New Focal Deficit, Normal Gait, Normal Speech Psy/Mental Status: Alert, Normal Affect, Normal Mood - Patient Data Lab Results Last 24 hrs: Laboratory Results - last 24 hr 03/12/21 03/12/21 03/12/21 Range/Units 14:27 14:27 14:27 WBC 14.89 H (4.23-9.07) K/mm3 RBC 4.44 L (4.63-6.08) M/mm3 Hgb 13.6 L D (13.7-17.5) gm/dl Hct 42.2 (40.1-51.0) % MCV 95.0 H (79.0-92.2) fl MCH 30.6 (25.7-32.2) pg MCHC 32.2 (32.2-35.5) g/dl RDW Std Deviation 50.3 H (35.1-43.9) fL Plt Count 206 (163-337) K/mm3 MPV 11.0 (9.4-12.3) fl Neut % (Auto) 85.2 H (34.0-67.9) % Lymph % (Auto) 4.1 L (21.8-53.1) % [place] % (Auto) 9.9 (5.3-12.2) % Eos % (Auto) 0 L (0.8-7.0) Baso % (Auto) 0.1 (0.1-1.2) % Neut # (Auto) 12.69 H (1.78-5.38) K/mm3 Lymph # (Auto) 0.61 L (1.32-3.57) K/mm3 [place] # (Auto) 1.48 H (0.30-0.82) K/mm3 Eos # (Auto) 0.00 L (0.04-0.54) K/mm3 Baso # (Auto) 0.01 (0.01-0.08) K/mm3 D-Dimer, Quantitative 0.48 (0.19-0.50) mg/L Sodium 144 (136-145) mEq/L Potassium 4.7 (3.5-5.1) mEq/L Chloride 110 H (98-107) mEq/L Carbon Dioxide 26 (21-32) mEq/L Anion Gap 12.7 (5-15) BUN 64 H D (7-18) mg/dL Creatinine 2.0 H (0.7-1.3) mg/dL Est Cr Clr Drug Dosing TNP Estimated GFR (MDRD) 33 (>60) mL/min BUN/Creatinine Ratio 32.0 H (14-18) Glucose 111 H (70-99) mg/dL Lactic Acid (0.4-2.0) mmol/L Calcium 8.4 L (8.5-10.1) mg/dL Total Bilirubin 0.6 (0.2-1.0) mg/dL AST 10 L (15-37) U/L ALT 15 L (16-63) U/L Alkaline Phosphatase 31 L (46-116) U/L Troponin I (0.00-0.056) ng/mL C-Reactive Protein 1.3 H* (<1.0) mg/dL NT-Pro-B Natriuret Pep (0-125) pg/mL Total Protein 6.8 (6.4-8.2) g/dl Albumin 2.9 L (3.4-5.0) g/dl Globulin 3.9 gm/dL Albumin/Globulin Ratio 0.7 L (1-2) Influenza Type A RNA (NEGATIVE) Influenza Type B RNA (NEGATIVE) SARS-CoV-2 RNA (ADAM) (NEGATIVE) 03/12/21 03/12/21 03/12/21 Range/Units 14:27 14:27 14:35 WBC (4.23-9.07) K/mm3 RBC (4.63-6.08) M/mm3 Hgb (13.7-17.5) gm/dl Hct (40.1-51.0) % MCV (79.0-92.2) fl MCH (25.7-32.2) pg MCHC (32.2-35.5) g/dl RDW Std Deviation (35.1-43.9) fL Plt Count (163-337) K/mm3 MPV (9.4-12.3) fl Neut % (Auto) (34.0-67.9) % Lymph % (Auto) (21.8-53.1) % [place] % (Auto) (5.3-12.2) % Eos % (Auto) (0.8-7.0) Baso % (Auto) (0.1-1.2) % Neut # (Auto) (1.78-5.38) K/mm3 Lymph # (Auto) (1.32-3.57) K/mm3 [place] # (Auto) (0.30-0.82) K/mm3 Eos # (Auto) (0.04-0.54) K/mm3 Baso # (Auto) (0.01-0.08) K/mm3 D-Dimer, Quantitative (0.19-0.50) mg/L Sodium (136-145) mEq/L Potassium (3.5-5.1) mEq/L Chloride (98-107) mEq/L Carbon Dioxide (21-32) mEq/L Anion Gap (5-15) BUN (7-18) mg/dL Creatinine (0.7-1.3) mg/dL Est Cr Clr Drug Dosing Estimated GFR (MDRD) (>60) mL/min BUN/Creatinine Ratio (14-18) Glucose (70-99) mg/dL Lactic Acid (0.4-2.0) mmol/L Calcium (8.5-10.1) mg/dL Total Bilirubin (0.2-1.0) mg/dL AST (15-37) U/L ALT (16-63) U/L Alkaline Phosphatase (46-116) U/L Troponin I 0.084 H* (0.00-0.056) ng/mL C-Reactive Protein (<1.0) mg/dL NT-Pro-B Natriuret Pep > 74115 H (0-125) pg/mL Total Protein (6.4-8.2) g/dl Albumin (3.4-5.0) g/dl Globulin gm/dL Albumin/Globulin Ratio (1-2) Influenza Type A RNA Negative (NEGATIVE) Influenza Type B RNA Negative (NEGATIVE) SARS-CoV-2 RNA (ADAM) Negative (NEGATIVE) 03/12/21 Range/Units 20:10 WBC (4.23-9.07) K/mm3 RBC (4.63-6.08) M/mm3 Hgb (13.7-17.5) gm/dl Hct (40.1-51.0) % MCV (79.0-92.2) fl MCH (25.7-32.2) pg MCHC (32.2-35.5) g/dl RDW Std Deviation (35.1-43.9) fL Plt Count (163-337) K/mm3 MPV (9.4-12.3) fl Neut % (Auto) (34.0-67.9) % Lymph % (Auto) (21.8-53.1) % [place] % (Auto) (5.3-12.2) % Eos % (Auto) (0.8-7.0) Baso % (Auto) (0.1-1.2) % Neut # (Auto) (1.78-5.38) K/mm3 Lymph # (Auto) (1.32-3.57) K/mm3 [place] # (Auto) (0.30-0.82) K/mm3 Eos # (Auto) (0.04-0.54) K/mm3 Baso # (Auto) (0.01-0.08) K/mm3 D-Dimer, Quantitative (0.19-0.50) mg/L Sodium (136-145) mEq/L Potassium (3.5-5.1) mEq/L Chloride (98-107) mEq/L Carbon Dioxide (21-32) mEq/L Anion Gap (5-15) BUN (7-18) mg/dL Creatinine (0.7-1.3) mg/dL Est Cr Clr Drug Dosing Estimated GFR (MDRD) (>60) mL/min BUN/Creatinine Ratio (14-18) Glucose (70-99) mg/dL Lactic Acid 1.1 (0.4-2.0) mmol/L Calcium (8.5-10.1) mg/dL Total Bilirubin (0.2-1.0) mg/dL AST (15-37) U/L ALT (16-63) U/L Alkaline Phosphatase (46-116) U/L Troponin I (0.00-0.056) ng/mL C-Reactive Protein (<1.0) mg/dL NT-Pro-B Natriuret Pep (0-125) pg/mL Total Protein (6.4-8.2) g/dl Albumin (3.4-5.0) g/dl Globulin gm/dL Albumin/Globulin Ratio (1-2) Influenza Type A RNA (NEGATIVE) Influenza Type B RNA (NEGATIVE) SARS-CoV-2 RNA (ADAM) (NEGATIVE) Result Diagrams: 03/13/21 07:58 03/13/21 07:58 Sepsis Event Note - Evaluation Sepsis Screening Result: No Definite Risk - Focused Exam Vital Signs: Vital Signs Temp Temp Pulse Resp BP Pulse Ox Pulse Ox 03/13/21 05:37 36.8 C 52 L 14 135/88 93 L 03/12/21 23:07 36.3 C 20 96 03/12/21 22:51 62 154/92 H 03/12/21 22:00 94 L - Problem List & Annotations (1) Pneumonia SNOMED Code(s): 365568141 Code(s): J18.9 - PNEUMONIA, UNSPECIFIED ORGANISM Status: Acute Priority: High Current Visit: Yes Qualifiers: Pneumonia type: due to unspecified organism Laterality: bilateral Lung location: unspecified part of lung Qualified Code(s): J18.9 - Pneumonia, unspecified organism (2) Acute exacerbation of CHF (congestive heart failure) SNOMED Code(s): 215793989, 26989465666810 Code(s): I50.9 - HEART FAILURE, UNSPECIFIED Status: Acute Priority: High Current Visit: Yes Qualifiers: Heart failure type: unspecified Qualified Code(s): I50.9 - Heart failure, unspecified (3) Aortic stenosis, severe SNOMED Code(s): 334371455 Code(s): I35.0 - NONRHEUMATIC AORTIC (VALVE) STENOSIS Status: Chronic Priority: High Current Visit: Yes (4) Acute on chronic renal failure SNOMED Code(s): 927586115 Code(s): N17.9 - ACUTE KIDNEY FAILURE, UNSPECIFIED; N18.9 - CHRONIC KIDNEY DISEASE, UNSPECIFIED Status: Acute Current Visit: Yes Qualifiers: Acute renal failure type: unspecified Chronic kidney disease stage: stage 3 (moderate) Chronic kidney disease stage 3 subtype: stage 3b (GFR 30-44) Qualified Code(s): N17.9 - Acute kidney failure, unspecified; N18.32 - Chronic kidney disease, stage 3b - Problem List Review Problem List Initiated/Reviewed/Updated: Yes - Plan Plan:: 75-year-old male with history of severe aortic stenosis and failed outpatient treatment of community-acquired pneumonia admitted for exacerbation of CHF and pneumonia. Community acquired pneumonia, failed outpatient therapy with doxycycline and prednisone * Symptoms started on 03/05/2021 * Worsening symptoms over the last couple of days. * Complains of productive sputum with blood-tinged * White count increased to 14.5 with left shift. White count could be ekta ficially elevated secondary to prednisone. * Treated with doxycycline * No blood cultures or antibiotics given in the emergency department Acute exacerbation of CHF Severe aortic stenosis * Unknown prior ejection fraction * Patient states he was supposed to have his aortic valve replaced last year. * Complains of multiple days since spring of having shortness of breath and feel ing ill and fatigued. He attributed this to prolonged Covid syndrome. * Not currently on loop diuretic. * Home meds to include an STAR inhibitor, lisinopril, and beta-cynthia, metoprolol tartrate 100 mg twice daily. Acute on chronic renal insufficiency * Patient described a several year history of renal insufficiency and the oldest creatinine we have is 4.0 from 2017. * Creatinine 2.0 with estimated GFR of 33. * BUN is elevated at 64 suggesting some prerenal disease. Other active medical problems include BPH, hyperlipidemia, GERD, recurrent major depressive disorder, diverticulosis Plan * Admit to medical floor * Blood and sputum cultures, lactic acid, proBNP * Rocephin 2 g every 24 hours * Azithromycin 500 mg every 24 hours x3 * Solu-Medrol 40 mg IV every 12 hours * Lasix 40 mg IV twice daily. Adjust as necessary. * Strict I's and O's and daily weights. 1 urination after Lasix was already lost, therefore today's I's and O's will be off. * Echocardiogram on Monday since we do not have echocardiogram ability on the weekends. * Hold lisinopril and hydrochlorothiazide. * Reduce metoprolol tartrate to 50 mg twice daily. * Renally dose medications * Follow CBC, CMP, mag, CRP, periodic procalcitonin * Rectify home meds * Lovenox 30 mg subcu daily * CODE STATUS: Full code * 03/13/2021 The patient is a 75-year-old gentleman who had been admitted secondary to pneumonia. Upon admission the patient was also noted to have B-type natriuretic peptide greater than 35,000. I placed the patient on fluid restriction. The patient will also have input and outputs monitored. The patient is currently on azithromycin and ceftriaxone and these will be continued for at least 4 more days. The patient also has been somewhat bradycardic but due to the aortic stenosis the patient's metoprolol will be continued. 2D echocardiogram is pending but I suspect that his bicuspid valve history is correct and that his stenosis is critical. The patient will likely need to have surgery at a later date. For now the goal will be continued to ambulate the patient. Have the patient back at his baseline. Repeat laboratory studies been ordered. He is also on DVT prophylaxis and this will continue.
[2021-03-13] MEDS: Tamsulosin 0.4 MG Cap.ER PO SCH ×2 (08:15→20:20)
[2021-03-13] MEDS: Aspirin 81 MG Tab.Chew PO SCH (08:15)
[2021-03-13] MEDS: methylPREDNISolone Sodium Succinate 40 MG/1 ML SDV IVPUSH SCH ×2 (08:15→20:20)
[2021-03-13] MEDS: Finasteride 5 MG Tab PO SCH (08:15)
[2021-03-13] MEDS: Metoprolol Tartrate 50 MG Tab PO SCH ×3 (08:15→20:20)
[2021-03-13] MEDS: Pravastatin 20 MG Tab PO SCH (08:15)
[2021-03-13] MEDS: Enoxaparin 40 MG/0.4 ML Syringe SUBCUT SCH (08:19)
[2021-03-13] MEDS ORDERED: Non-Formulary Medication 1 Each (Escitalopram 10 MG Tablet) PO SCH (09:00)
[2021-03-13] MEDS: Citalopram 20 MG Tab PO SCH (11:58)
[2021-03-13] MEDS: cefTRIAXone 2 GM in Sodium Chloride 0.9% 100 ML IV SCH (20:20)
[2021-03-13] MEDS: Azithromycin 500 MG in Sodium Chloride 0.9% 250 ML IV SCH (23:23)
[2021-03-14] MEDS ORDERED: Furosemide 20 MG/2 ML VIAL IVPUSH ONE (05:46)
[2021-03-14] MEDS ORDERED: Furosemide 20 MG/2 ML VIAL ONE (05:49)
--- NOTE | 2021-03-14 07:14 | PCM.SN.2 ---
- Free Text/Narrative Note: The patient is a 75-year-old gentleman who had been admitted to acute hospitalization on March 12, 2021 due to new onset congestive heart failure with critical aortic stenosis. Received initial call at approximately 0 515 and was called to the patient bedside as the patient had started to develop chest discomfort with pain in his left arm. He also had increased work of breathing with shortness of breath. Patient was evaluated at bedside found to be comfortable on BiPAP settings of 12/6 with 2 L of oxygen. There is also noted that the patient was coughing frothy pink sputum. The patient initially had been tachypneic and he said that he had been anxious but he feels better now with BiPAP. The patient did have IV Lasix and was diuresed although the amount measured is not available. Transportation to tertiary care center was initiated at approximately 610 AM after patient evaluation. See discharge summary. Time Documentation
--- NOTE | 2021-03-14 07:22 | CR ---
Chest: Portable view of the chest was obtained. Comparison: Prior chest x-ray of 03/12/21. Heart size is slightly enlarged. Upper mediastinum is within normal limits. Increased density is seen on both sides of the chest which is worse on the right side. Findings are fairly stable from prior chest x-ray. Bony structures show nothing acute. Impression: 1. Diffuse increased density within both sides of the chest, worse on the right side. Findings are fairly stable to most recent chest x-ray. Findings are likely due to severe Covid pneumonia. 2. Mild cardiomegaly which is stable. Diagnostic code #3 I agree with preliminary report from [facility] finalized on 03/14/21, 6:40 AM CDT, code 1
--- NOTE | 2021-03-14 07:55 | PCM.EKG ---
#1 Interpretation EKG Date: 03/14/21 Time: 05:17 Rhythm: NSR Rate (Beats/Min): 83 [place]: Normal P-Wave: Enlarged (The patient also had indication of left atrial enlargement.) QRS: RBBB ST-T: Normal QT: Prolonged Comparison: No Change EKG Interpretation Comments: EKG was indicative of left atrial enlargement along with left ventricle hypertrophy.
--- NOTE | 2021-03-14 08:21 | PCM.DCSUM1 ---
Discharge Summary - Hospital Course Free Text/Narrative:: The patient was admitted secondary to congestive heart failure and was initially thought to have pneumonia. The patient overnight had developed symptomatic chest pain, shortness of breath and pulmonary edema due to his previously noted critical aortic stenosis. Diagnosis: Stroke: No - Discharge Data Discharge Date: 03/14/21 Discharge Disposition: DC/Tfer to [facility] 02 Condition: Poor - Referral to Home Health Primary Care Physician: Kalee Willson NP - Discharge Diagnosis/Problem(s) (1) Acute exacerbation of CHF (congestive heart failure) SNOMED Code(s): 223698189, [id number] ICD Code: I50.9 - HEART FAILURE, UNSPECIFIED Status: Acute Priority: High Current Visit: Yes Problem Details: Secondary to critical aortic stenosis Qualifiers: Heart failure type: systolic Qualified Code(s): I50.23 - Acute on chronic systolic (congestive) heart failure (2) Aortic stenosis, severe SNOMED Code(s): 742809120 ICD Code: I35.0 - NONRHEUMATIC AORTIC (VALVE) STENOSIS Status: Chronic Priority: High Current Visit: Yes (3) Acute on chronic renal failure SNOMED Code(s): 226956402 ICD Code: N17.9 - ACUTE KIDNEY FAILURE, UNSPECIFIED; N18.9 - CHRONIC KIDNEY DISEASE, UNSPECIFIED Status: Chronic Priority: High Current Visit: Yes Qualifiers: Acute renal failure type: unspecified Chronic kidney disease stage: stage 3 (moderate) Chronic kidney disease stage 3 subtype: stage 3b (GFR 30-44) Qualified Code(s): N17.9 - Acute kidney failure, unspecified; N18.32 - Chronic kidney disease, stage 3b - Patient Summary/Data Consults: Consultations 03/12/21 19:37 Respiratory Care Assess and Treatment [CONS] Routine Hospital Course: The patient is a 75-year-old gentleman who had been admitted to acute hospitalization on March 12, 2020 what was initially thought to be pneumonia. The patient was also noted to have acute congestive heart failure with a BNP of greater than 35,000. The patient had COVID-19 testing which was negative through the emergency department. The patient then was placed on fluid restriction of 1.5 L. The patient also had mild elevation of his troponin at 0.084. The patient says that he started feeling ill on approximately March 05, 2021. And he had visited with his primary care physician and was placed on doxycycline and prednisone. Patient reports that he had been on prednisone although his records were unclear as to why this was. Patient says that he had been on prednisone for approximately 4 years. The patient was initially started on azithromycin and ceftriaxone and this was discontinued as the patient's chest x-ray was more indicative of pulmonary edema. On the day of discharge the patient had symptoms that would be associated with critical aortic stenosis. He had developed frothy pink sputum. He had chest discomfort with pain in his left arm. He was also extremely short of breath and tachypneic. The patient had been given single dose of Lasix at 20 mg IV and he diuresed an unknown amount. The patient was also placed on BiPAP and he had tolerated this well. The patient reports that he had been evaluated by interventional cardiology in [facility] and was found to have a bicuspid aortic valve with stenosis and sclerosis. The patient himself says that he had been scheduled for a JESENIA but is unsure of the date of this. The patient has been stabilized with the use of diuretics as well as BiPAP. ABG obtained prior to transfer showed hypoxemia with a PaO2 of 62. The patient also has a history of chronic kidney disease stage III and his current creatinine is 1.9 which is somewhat better than his baseline. Because of the patient's symptomology as well as known history of bicuspid aortic valve with known aortic stenosis the patient falls into the category of critical aortic stenosis and likely requires urgent intervention. I have discussed the gravity of the situation with the patient and the patient's son who is present in hospital room with him. I have a conversation with hospit alist and mine geologist in [place] and ICU beds were not available. I called [facility] in [place] and [facility] [place] and hospitalist accepted the patient for transportation. The hospitalist was Dr. Stevenson accepting physician. The patient has been stabilized and is appropriate for ground transportation. The patient is hemodynamically stable for now however, the patient's prognosis is poor. The patient will be discharged from hospitalization with the recommendations above. - Patient Instructions Diet: Heart Healthy Diet Activity: As Tolerated - Discharge Plan *PRESCRIPTION DRUG MONITORING PROGRAM REVIEWED*: No *COPY OF PRESCRIPTION DRUG MONITORING REPORT IN PATIENT GILDARDO: No Home Medications: Home Meds Aspirin 81 mg PO DAILY 04/14/17 [History] Fenofibrate 160 mg PO DAILY 04/14/17 [History] Omeprazole 20 mg PO TID 04/14/17 [History] Pravastatin [Pravachol] 20 mg PO DAILY 04/14/17 [History] Tamsulosin [Flomax] 0.4 mg PO BID 04/14/17 [History] Escitalopram [Lexapro] 30 mg PO DAILY 09/06/18 [History] Finasteride 5 mg PO DAILY 03/12/21 [History] predniSONE [Prednisone] 20 mg PO BID 03/12/21 [History] Furosemide [Lasix] 40 mg IVPUSH DAILY vial 03/14/21 [Rx] Metoprolol Tartrate [Lopressor] 50 mg PO Q12HR tablet 03/14/21 [Rx] lisinopriL [Prinivil] 2.5 mg PO DAILY tablet 03/14/21 [Rx] Oxygen Therapy Mode: BiPAP Oxygen Flow Rate (L/min): 3 Forms: ED Department Discharge Referrals: Kalee Willson [employer] [Primary Care Provider] - - Discharge Summary/Plan Comment DC Time >30 min.: Yes Total # of Minutes for Discharge Time: 55 - General Info Date of Service: 03/14/21 Admission Dx/Problem (Free Text: Admission Diagnosis/Problem Admission Diagnosis/Problem Critical, symptomatic aortic stenosis with congestive heart failure Subjective Update: The patient was symptomatic with chest pain, shortness of breath and frothy pink sputum. Functional Status: Reports: Pain Controlled, New Symptoms (Severe dyspnea) - Review of Systems General: Reports: No Symptoms HEENT: Reports: No Symptoms Pulmonary: Reports: Shortness of Breath, Pleuritic Chest Pain, Cough, Sputum Cardiovascular: Reports: No Symptoms Gastrointestinal: Reports: No Symptoms Genitourinary: Reports: No Symptoms Musculoskeletal: Reports: No Symptoms Skin: Reports: No Symptoms Neurological: Reports: No Symptoms Psychiatric: Reports: No Symptoms - Patient Data Vitals - Most Recent: Last Vital Signs Temp 36.5 C 03/14/21 08:00 Pulse 67 03/14/21 08:00 Resp 20 03/14/21 08:00 BP 148/94 H 03/14/21 08:00 Pulse Ox 94 L 03/14/21 08:00 Weight - Most Recent: 99.337 kg I&O - Last 24 hours: Intake & Output 03/13/21 03/14/2121 22:59 06:59 14:59 Intake Total 860 425 Output Total 450 575 Balance 410 -150 Lab Results - Last 24 hrs: Laboratory Results - last 24 hr 03/13/21 03/13/21 03/14/21 Range/Units 07:58 07:58 05:04 WBC 11.38 H 12.63 H (4.23-9.07) K/mm3 RBC 4.25 L 4.78 (4.63-6.08) M/mm3 Hgb 12.9 L 14.4 D (13.7-17.5) gm/dl Hct 39.9 L 44.7 (40.1-51.0) % MCV 93.9 H 93.5 H (79.0-92.2) fl MCH 30.4 30.1 (25.7-32.2) pg MCHC 32.3 32.2 (32.2-35.5) g/dl RDW Std Deviation 49.1 H 49.3 H (35.1-43.9) fL Plt Count 209 228 (163-337) K/mm3 MPV 11.3 11.2 (9.4-12.3) fl Neut % (Auto) 84.8 H 91.3 H (34.0-67.9) % Lymph % (Auto) 6.5 L 4.6 L (21.8-53.1) % Johnston % (Auto) 8.2 3.7 L (5.3-12.2) % Eos % (Auto) 0 L 0 L (0.8-7.0) Baso % (Auto) 0.1 0.1 (0.1-1.2) % Neut # (Auto) 9.66 H 11.53 H (1.78-5.38) K/mm3 Lymph # (Auto) 0.74 L 0.58 L (1.32-3.57) K/mm3 Johnston # (Auto) 0.93 H 0.47 (0.30-0.82) K/mm3 Eos # (Auto) 0.00 L 0.00 L (0.04-0.54) K/mm3 Baso # (Auto) 0.01 0.01 (0.01-0.08) K/mm3 Manual Slide Review Abnormal smear Puncture Site ABG pH (7.35-7.45) ABG pCO2 (35.0-45.0) mmHg ABG pO2 (80.0-100.0) mmHg ABG HCO3 (22.0-26.0) meq/L ABG O2 Saturation (96.0-97.0) % ABG Base Excess (-2-2.0) Jordan Test O2 Delivery Device PEEP cmH20 Pressure Support cmH2O Sodium 144 (136-145) mEq/L Potassium 4.5 (3.5-5.1) mEq/L Chloride 109 H (98-107) mEq/L Carbon Dioxide 27 (21-32) mEq/L Anion Gap 12.5 (5-15) BUN 67 H (7-18) mg/dL Creatinine 2.1 H (0.7-1.3) mg/dL Est Cr Clr Drug Dosing 30.31 mL/min Estimated GFR (MDRD) 31 (>60) mL/min BUN/Creatinine Ratio 31.9 H (14-18) Glucose 116 H (70-99) mg/dL Calcium 8.3 L (8.5-10.1) mg/dL Magnesium 2.1 (1.8-2.4) mg/dL Total Bilirubin 0.4 (0.2-1.0) mg/dL AST 8 L (15-37) U/L ALT 13 L (16-63) U/L Alkaline Phosphatase 30 L (46-116) U/L Troponin I (0.00-0.056) ng/mL C-Reactive Protein 3.7 H* (<1.0) mg/dL Total Protein 6.4 (6.4-8.2) g/dl Albumin 2.6 L (3.4-5.0) g/dl Globulin 3.8 gm/dL Albumin/Globulin Ratio 0.7 L (1-2) 03/14/21 03/14/21 03/14/21 Range/Units 05:04 05:04 07:43 WBC (4.23-9.07) K/mm3 RBC (4.63-6.08) M/mm3 Hgb (13.7-17.5) gm/dl Hct (40.1-51.0) % MCV (79.0-92.2) fl MCH (25.7-32.2) pg MCHC (32.2-35.5) g/dl RDW Std Deviation (35.1-43.9) fL Plt Count (163-337) K/mm3 MPV (9.4-12.3) fl Neut % (Auto) (34.0-67.9) % Lymph % (Auto) (21.8-53.1) % Johnston % (Auto) (5.3-12.2) % Eos % (Auto) (0.8-7.0) Baso % (Auto) (0.1-1.2) % Neut # (Auto) (1.78-5.38) K/mm3 Lymph # (Auto) (1.32-3.57) K/mm3 Johnston # (Auto) (0.30-0.82) K/mm3 Eos # (Auto) (0.04-0.54) K/mm3 Baso # (Auto) (0.01-0.08) K/mm3 Manual Slide Review Puncture Site Rt radial ABG pH 7.41 (7.35-7.45) ABG pCO2 36.2 (35.0-45.0) mmHg ABG pO2 62.0 L (80.0-100.0) mmHg ABG HCO3 22.7 (22.0-26.0) meq/L ABG O2 Saturation 89.4 L (96.0-97.0) % ABG Base Excess -0.9 (-2-2.0) Jordan Test Positive O2 Delivery Device Bipap PEEP 6.0 cmH20 Pressure Support 12.0 cmH2O Sodium 144 (136-145) mEq/L Potassium 4.5 (3.5-5.1) mEq/L Chloride 111 H (98-107) mEq/L Carbon Dioxide 24 (21-32) mEq/L Anion Gap 13.5 (5-15) BUN 70 H (7-18) mg/dL Creatinine 1.9 H (0.7-1.3) mg/dL Est Cr Clr Drug Dosing 33.50 mL/min Estimated GFR (MDRD) 35 (>60) mL/min BUN/Creatinine Ratio 36.8 H (14-18) Glucose 174 H (70-99) mg/dL Calcium 8.5 (8.5-10.1) mg/dL Magnesium 2.3 (1.8-2.4) mg/dL Total Bilirubin 0.3 (0.2-1.0) mg/dL AST 4 L (15-37) U/L ALT 15 L (16-63) U/L Alkaline Phosphatase 35 L (46-116) U/L Troponin I 0.031 (0.00-0.056) ng/mL C-Reactive Protein 2.6 H* (<1.0) mg/dL Total Protein 6.3 L (6.4-8.2) g/dl Albumin 2.7 L (3.4-5.0) g/dl Globulin 3.6 gm/dL Albumin/Globulin Ratio 0.8 L (1-2) Med Orders - Current: Current Medications Acetaminophen (Acetaminophen 325 Mg Tab) 650 mg PO Q4H PRN PRN Reason: Pain (Mild 1-3)/fever Last Admin: 03/13/21 23:21 Dose: 650 mg Documented by: Albuterol (Albuterol 0.083% 2.5 Mg/3 Ml Neb Soln) 2.5 mg NEB Q2H PRN PRN Reason: Shortness Of Breath/wheezing Albuterol/Ipratropium (Albuterol/Ipratropium 3.0-0.5 Mg/3 Ml Neb Soln) 3 ml NEB Q4H PRN PRN Reason: Shortness Of Breath/wheezing Last Admin: 03/14/21 05:37 Dose: 3 ml Documented by: Aspirin (Aspirin 81 Mg Tab.Chew) 81 mg PO DAILY [facility] Last Admin: 03/13/21 08:15 Dose: 81 mg Documented by: Citalopram Hydrobromide (Citalopram 20 Mg Tab) 20 mg PO DAILY [facility] Last Admin: 03/13/21 11:58 Dose: 20 mg Documented by: Enoxaparin Sodium (Enoxaparin 40 Mg/0.4 Ml Syringe) 40 mg SUBCUT DAILY [facility] Last Admin: 03/13/21 08:19 Dose: 40 mg Documented by: Finasteride (Finasteride 5 Mg Tab) 5 mg PO DAILY [facility] Last Admin: 03/13/21 08:15 Dose: 5 mg Documented by: Furosemide (Furosemide 40 Mg/4 Ml Vial) 40 mg IVPUSH DAILY [facility] Lisinopril (Lisinopril 2.5 Mg Tab) 2.5 mg PO DAILY [facility] Methylprednisolone Sodium Succinate (Methylprednisolone Sodium Succinate 40 Mg/1 Ml Sdv) 40 mg IVPUSH Q12H [facility] Last Admin: 03/13/21 20:20 Dose: 40 mg Documented by: Metoprolol Tartrate (Metoprolol Tartrate 50 Mg Tab) 50 mg PO Q12HR [facility] Last Admin: 03/13/21 20:20 Dose: 50 mg Documented by: Ondansetron HCl (Ondansetron 4 Mg/2 Ml Sdv) 4 mg IV Q6H PRN PRN Reason: Nausea/Vomiting Pravastatin Sodium (Pravastatin 20 Mg Tab) 20 mg PO DAILY [facility] Last Admin: 03/13/21 08:15 Dose: 20 mg Documented by: Sodium Chloride (Sodium Chloride 0.9% 10 Ml Syringe) 10 ml FLUSH ASDIRECTED PRN PRN Reason: Keep Vein Open Last Admin: 03/12/21 16:44 Dose: 10 ml Documented by: Tamsulosin HCl (Tamsulosin 0.4 Mg Cap.Er) 0.4 mg PO BID [facility] Last Admin: 03/13/21 20:20 Dose: 0.4 mg Documented by: Discontinued Medications Furosemide (Furosemide 40 Mg/4 Ml Vial) 40 mg IVPUSH NOW ONE Stop: 03/12/21 16:49 Last Admin: 03/12/21 17:10 Dose: 40 mg Documented by: Furosemide (Furosemide 20 Mg/2 Ml Vial) 20 mg IVPUSH ONETIME ONE Stop: 03/14/21 05:47 Last Admin: 03/14/21 05:54 Dose: 20 mg Documented by: Furosemide (Furosemide 20 Mg/2 Ml Vial) Confirm Administered Dose 20 mg .ROUTE .STK-MED ONE Stop: 03/14/21 05:50 Last Admin: 03/14/21 05:55 Dose: Not Given Documented by: Ceftriaxone Sodium 2 gm/ (Sodium Chloride) 100 mls @ 200 mls/hr IV Q24H [facility] Last Admin: 03/13/21 20:20 Dose: 200 mls/hr Documented by: Azithromycin 500 mg/ Sodium (Chloride) 250 mls @ 250 mls/hr IV Q24H [facility] Stop: 03/14/21 21:59 Last Admin: 03/13/21 23:23 Dose: 250 mls/hr Documented by: Non-Formulary Medication (Escitalopram) 30 mg PO DAILY [facility] Last Admin: 03/13/21 13:05 Dose: Not Given Documented by: Prednisone (Prednisone 20 Mg Tab) 20 mg PO BID CLAUDIA Trazodone HCl (Trazodone 50 Mg Tab) 50 mg PO ONETIME ONE Stop: 03/13/21 01:23 Last Admin: 03/13/21 01:47 Dose: 50 mg Documented by: - Exam Quality Assessment: Reports: Supplemental Oxygen, DVT Prophylaxis General: Reports: Alert, Oriented, Cooperative HEENT: Reports: Pupils Equal, Pupils Reactive, EOMI. Denies: Mucous Membr. Moist/Gambier (Dry, poor dentition) Neck: Reports: Supple, Trachea Midline Lungs: Reports: Decreased Breath Sounds, Crackles, Rales Cardiovascular: Reports: Regular Rate, Regular Rhythm, Murmurs (Grade 3 out of 6 holosystolic) GI/Abdominal Exam: Normal Bowel Sounds, Soft, No Distention (Male) Exam: Deferred Rectal (Males) Exam: Deferred Back Exam: Reports: Normal Inspection, Full Range of Motion Extremities: Normal Inspection, No Pedal Edema Skin: Reports: Warm, Dry, Intact Neurological: Reports: No New Focal Deficit Psy/Mental Status: Reports: Alert, Normal Affect
[2021-03-14] MEDS: Aspirin 81 MG Tab.Chew PO SCH (08:48)
[2021-03-14] MEDS: Finasteride 5 MG Tab PO SCH (08:48)
[2021-03-14] MEDS: Tamsulosin 0.4 MG Cap.ER PO SCH (08:49)
[2021-03-14] MEDS: Pravastatin 20 MG Tab PO SCH (08:49)
[2021-03-14] MEDS: Citalopram 20 MG Tab PO SCH (08:49)
[2021-03-14] MEDS: Metoprolol Tartrate 50 MG Tab PO SCH (08:52)
[2021-03-14] MEDS: Enoxaparin 40 MG/0.4 ML Syringe SUBCUT SCH (08:53)
[2021-03-14] MEDS: methylPREDNISolone Sodium Succinate 40 MG/1 ML SDV IVPUSH SCH (08:53)
[2021-03-14] MEDS ORDERED: Furosemide 40 MG/4 ML VIAL IVPUSH SCH (09:00)
[2021-03-14] MEDS ORDERED: Lisinopril 2.5 MG Tab PO SCH (09:00)
--- NOTE | 2021-03-14 14:10 | PCM.PRNOTE ---
- Free Text/Narrative Note: The patient has been hemodynamically stable for transfer. He had been recommended to go by ground. The patient had been scheduled to go by flight is medical necessity that would take ambulance service away from current area for to longer period of time. The patient has been ordered for slight to [facility] for treatment of his critical aortic stenosis. The change in transportation status from ground to flight has been recommended as a medical necessity.
== END 2021-03-14 15:00 | DRG 291 ==
LOC: JD.ED 12:53 → JD.ICU 17:47 → JD.MS 03-13 01:43
PROVIDERS: ADMIT Family Medicine; ATTEND Family Medicine
DX: I13.0 Hypertensive heart and chronic kidney disease with heart failure and stage 1 through stage 4 chronic kidney disease, or unspecified chronic kidney disease (principal); I50.23 Acute on chronic systolic (congestive) heart failure; I50.9 Heart failure, unspecified; J18.9 Pneumonia, unspecified organism; N17.9 Acute kidney failure, unspecified; I35.0 Nonrheumatic aortic (valve) stenosis; N18.32 Chronic kidney disease, stage 3b; Z20.822 Contact with and (suspected) exposure to COVID-19; H54.7 Unspecified visual loss; E78.00 Pure hypercholesterolemia, unspecified; K21.9 Gastro-esophageal reflux disease without esophagitis; M19.90 Unspecified osteoarthritis, unspecified site; F32.9 Major depressive disorder, single episode, unspecified; N40.0 Benign prostatic hyperplasia without lower urinary tract symptoms; Z79.82 Long term (current) use of aspirin; I73.9 Peripheral vascular disease, unspecified; F41.9 Anxiety disorder, unspecified; F32.A Depression, unspecified; Z79.52 Long term (current) use of systemic steroids; Z79.899 Other long term (current) drug therapy; Z98.890 Other specified postprocedural states; Z86.16 Personal history of COVID-19
CPT/HCPCS: 0240U; 36415; 36600; 71045; 71046; 80053; 82803; 83605; 83735; 83880; 84145; 84484; 85025; 85379; 86140; 87040; 93005; 94640; 94660; 94667; 94668; 94762; 96374; 99285-25; A9270-GY; J0456; J0696; J1650; J1940; J2920; J7050; J7620-GY

== ENCOUNTER 2021-03-20 03:34 | Emergency (ER) | payer MEDICARE, MEDICAID ==
--- NOTE | 2021-03-20 05:38 | EDM.PDOC ---
ED HPI GENERAL MEDICAL PROBLEM - General Chief Complaint: Cardiovascular Problem Stated Complaint: [facility] Time Seen by Provider: 03/20/21 03:34 - History of Present Illness INITIAL COMMENTS - FREE TEXT/NARRATIVE: 75-year-old male brought in by [facility] after having a fall. Patient has vague recollection of what happened. After he had time to clear his mind he believes he got out of bed and then passed out. It is apparent from right facial bruising to his nose and around his eye that he landed on his right side. Upon arrival here the patient is somewhat confused this did improve over time. EMS stated he had an episode where he had atrial activity but no ventricular activity. The only piece of tracing that they showed me was an incomplete EKG where the precordial leads were not recorded. It was reported to me that he was on blood thinners however after discussing the situation with 1 call who is very helpful in [place] he is on aspirin but he is not anticoagulated. At this point the patient denies any chest pain breathing difficulties or shortness of breath after his fall he is got a little bit of facial discomfort but no significant headache no abdominal pelvic or extremity pain. The patient was just discharged from [facility] in [place] after having aortic valve replacement, TAVR technique for a highly stenotic bicuspid aortic valve. He was discharged yesterday. Chest Pain Score (Numeric/FACES): 8 - Related Data Allergies Allergy/AdvReac Type Severity Reaction Status Date / Time No Known Allergies Allergy Verified 03/20/21 03:51 Home Meds: Home Meds Aspirin 81 mg PO DAILY 04/14/17 [History] Fenofibrate 160 mg PO DAILY 04/14/17 [History] Omeprazole 20 mg PO TID 04/14/17 [History] Pravastatin [Pravachol] 20 mg PO DAILY 04/14/17 [History] Tamsulosin [Flomax] 0.4 mg PO BID 04/14/17 [History] Escitalopram [Lexapro] 30 mg PO DAILY 09/06/18 [History] Finasteride 5 mg PO DAILY 03/12/21 [History] predniSONE [Prednisone] 20 mg PO BID 03/12/21 [History] Furosemide [Lasix] 40 mg IVPUSH DAILY vial 03/14/21 [Rx] Metoprolol Tartrate [Lopressor] 50 mg PO Q12HR tablet 03/14/21 [Rx] lisinopriL [Prinivil] 2.5 mg PO DAILY tablet 03/14/21 [Rx] Past Medical History HEENT History: Reports: Impaired Vision, Other (See Below) Other HEENT History: excessive cerumen in ears Cardiovascular History: Reports: High Cholesterol, Hypertension, Other (See Below) Other Cardiovascular History: PAD, AORTIC STENOSIS, IRREGULAR HEART BEAT AT TIMES Gastrointestinal History: Reports: GERD, Pancreatitis, Other (See Below) Other Gastrointestinal History: HEPATIC CYST, GASTRIC ULCER Genitourinary History: Reports: BPH, Prostate Disorder, Renal Disease Other Genitourinary History: currently in renal failure, CKD III Musculoskeletal History: Reports: Arthritis, Osteoarthritis, Other (See Below) Other Musculoskeletal History: LOWER LEG FRACTURE Neurological History: Reports: Migraines Psychiatric History: Reports: Addiction, Anxiety, Depression, Other (See Below) Other Psychiatric History: ETOH abuse Endocrine/Metabolic History: Reports: Obesity/BMI 30+ Hematologic History: Reports: Blood Transfusion(s) Immunologic History: Reports: None - Infectious Disease History Infectious Disease History: Reports: Measles, Novel Coronavirus - Past Surgical History Head Surgeries/Procedures: Reports: None HEENT Surgical History: Reports: Tonsillectomy Cardiovascular Surgical History: Reports: None Respiratory Surgical History: Reports: None GI Surgical History: Reports: None Male Surgical History: Reports: None Endocrine Surgical History: Reports: None Neurological Surgical History: Reports: None Oncologic Surgical History: Reports: None Dermatological Surgical History: Reports: None Social & Family History - Family History Family Medical History: No Pertinent Family History - Tobacco Use Tobacco Use Status *Q: Never Tobacco User - Caffeine Use Caffeine Use: Reports: Coffee ED ROS GENERAL - Review of Systems Review Of Systems: See Below Constitutional: Reports: No Symptoms HEENT: Reports: No Symptoms Respiratory: Reports: No Symptoms Cardiovascular: Reports: No Symptoms GI/Abdominal: Reports: No Symptoms Musculoskeletal: Reports: No Symptoms Skin: Reports: No Symptoms Neurological: Reports: Headache, Syncope Psychiatric: Reports: No Symptoms Hematologic/Lymphatic: Reports: No Symptoms Immunologic: Reports: No Symptoms ED EXAM, GENERAL - Physical Exam Exam: See Below Exam Limited By: No Limitations General Appearance: Alert, No Apparent Distress Eye Exam: Bilateral Eye: EOMI, PERRL Ears: Normal External Exam, Normal Canal, Hearing Grossly Normal, Normal TMs Nose: Normal Inspection, Normal Mucosa, No Blood Throat/Mouth: Normal Inspection, Normal Lips, Normal Gums, Normal Oropharynx, Normal Voice, No Airway Compromise. No: Normal Teeth (He has poor dentition evidence of oral bleeding) Head: Other (Facial swelling abrasions and ecchymosis around the right eye and nose) Neck: Normal Inspection, Supple, Non-Tender. No: Lymphadenopathy (L), Lymphadenopathy (R) Respiratory/Chest: No Respiratory Distress, Lungs Clear, Normal Breath Sounds Cardiovascular: Normal Peripheral Pulses, Regular Rate, Rhythm, Other (I do not appreciate a murmur) GI/Abdominal: Normal Bowel Sounds, Soft, Non-Tender, Pelvis Stable Back Exam: Normal Inspection. No: CVA Tenderness (L), CVA Tenderness (R), Alison tebral Tenderness Extremities: Normal Inspection Neurological: Other (The patient was initially foggy upon presentation he would awaken and then go back and forth this did improve with time) Skin Exam: Warm, Dry, Intact #1 Interpretation EKG Date: 03/20/21 Rhythm: Other (Borderline sinus tach) Rate (Beats/Min): 101 [place]: LAD-Left [place] Deviation QRS: RBBB ST-T: Other (Diffuse ST depression with ST elevation in leads III) QT: Normal Comparison: No Change (I had the opportunity to compare this EKG from the one from the of this month from [facility] the ST changes are all apparently new.) EKG Interpretation Comments: Abnormal EKG concerning for ischemia Course - Vital Signs Last Recorded V/S: Last Vital Signs Temp 36.6 C 03/20/21 03:48 Pulse 106 H 03/20/21 03:48 Resp 24 H 03/20/21 03:48 BP 111/55 L 03/20/21 03:48 Pulse Ox 87 L 03/20/21 03:48 - Orders/Labs/Meds Orders: Active Orders 24 hr Category Date Time Status Cervical Spine wo Cont [CT] Stat Exams 03/20/21 03:53 Taken Chest 1V Frontal [CR] Stat Exams 03/20/21 03:52 Taken Head wo Cont [CT] Stat Exams 03/20/21 03:53 Taken Max Facial Sinus wo Cont [CT] Stat Exams 03/20/21 03:53 Taken Labs: Laboratory Tests 03/20/21 03/20/21 03/20/21 Range/Units 03:35 03:35 03:35 WBC 19.61 H (4.23-9.07) K/mm3 RBC 4.21 L (4.63-6.08) M/mm3 Hgb 12.8 L D (13.7-17.5) gm/dl Hct 39.9 L (40.1-51.0) % MCV 94.8 H (79.0-92.2) fl MCH 30.4 (25.7-32.2) pg MCHC 32.1 L (32.2-35.5) g/dl RDW Std Deviation 47.0 H (35.1-43.9) fL Plt Count 140 L D (163-337) K/mm3 MPV 11.7 (9.4-12.3) fl Neut % (Auto) 78.5 H (34.0-67.9) % Lymph % (Auto) 7.8 L (21.8-53.1) % Placer % (Auto) 12.4 H (5.3-12.2) % Eos % (Auto) 0.7 L (0.8-7.0) Baso % (Auto) 0.1 (0.1-1.2) % Neut # (Auto) 15.42 H (1.78-5.38) K/mm3 Lymph # (Auto) 1.52 (1.32-3.57) K/mm3 Placer # (Auto) 2.43 H (0.30-0.82) K/mm3 Eos # (Auto) 0.13 (0.04-0.54) K/mm3 Baso # (Auto) 0.02 (0.01-0.08) K/mm3 Manual Slide Review Abnormal smear PT 10.7 (9.7-12.0) SECONDS INR 0.96 APTT 27.2 (21.7-31.4) SECONDS Sodium 140 (136-145) mEq/L Potassium 4.1 (3.5-5.1) mEq/L Chloride 110 H (98-107) mEq/L Carbon Dioxide 20 L (21-32) mEq/L Anion Gap 14.1 (5-15) BUN 62 H (7-18) mg/dL Creatinine 1.9 H (0.7-1.3) mg/dL Est Cr Clr Drug Dosing TNP Estimated GFR (MDRD) 35 (>60) mL/min BUN/Creatinine Ratio 32.6 H (14-18) Glucose 164 H (70-99) mg/dL Calcium 8.3 L (8.5-10.1) mg/dL Total Bilirubin 0.5 (0.2-1.0) mg/dL AST 36 (15-37) U/L ALT 30 (16-63) U/L Alkaline Phosphatase 40 L (46-116) U/L Troponin I 1.147 H* (0.00-0.056) ng/mL Total Protein 6.1 L (6.4-8.2) g/dl Albumin 2.5 L (3.4-5.0) g/dl Globulin 3.6 gm/dL Albumin/Globulin Ratio 0.7 L (1-2) - Re-Assessments/Exams Free Text/Narrative Re-Assessment/Exam: 03/20/21 05:41 The patient presented with an unknown history but EMS understood he may have fallen more than once. It was also thought that he was anticoagulated. After reviewing his EKG there is some concern of ischemia. But I had no recent EKGs for comparison until I have received the EKGs from [facility] which was preferable after the procedure. I would have liked to have CT did him more completely to exclude bleeding however with the concern of ischemia on the EKG and a normal chest abdomen pelvis exam did not CT these areas. I worked with 1 call at [facility] who was able to get me EKGs from the which did not show the ST changes on this morning's tracing. The patient's troponin then come back elevated at 1.47 are upper end of normal is 0.056. I then requested to discuss situation with cardiology and at [facility] in [place] discussed the situation with Dr. Alatorre. Who recommended the patient be sent over. It was recommended the patient go through the emergency room so they can get echo immediately upon arrival there. The case was discussed with Dr. Cloud ER physician who accepted the patient. We discussed the situation in detail and whether or not the patient should be started on heparin and it was determined that cardiology should make this call Dr. Alatorre and the clerk manager Dr. Pereira informed 1 call that the patient should not be started on heparin at this point. The patient left the department in stable condition and will be taken to [place] by [facility]. Departure - Departure Time of Disposition: 05:40 Disposition: DC/Tfer to [facility] 02 Reason for Transfer *Q: Other Clinical Impression: Syncopal episodes, Elevated troponin, Aortic valve replaced Referrals: Kalee Willson NP [Primary Care Provider] - Forms: ED Department Discharge Sepsis Event Note (ED) - Evaluation Sepsis Screening Result: No Definite Risk - Focused Exam Vital Signs: Vital Signs Temp Pulse Resp BP Pulse Ox 03/20/21 03:48 36.6 C 106 H 24 H 111/55 L 87 L - My Orders Last 24 Hours: My Active Orders 03/20/21 03:52 Chest 1V Frontal [CR] Stat 03/20/21 03:53 Cervical Spine wo Cont [CT] Stat Head wo Cont [CT] Stat Max Facial Sinus wo Cont [CT] Stat - Assessment/Plan Last 24 Hours: My Active Orders 03/20/21 03:52 Chest 1V Frontal [CR] Stat 03/20/21 03:53 Cervical Spine wo Cont [CT] Stat Head wo Cont [CT] Stat Max Facial Sinus wo Cont [CT] Stat
--- NOTE | 2021-03-20 07:02 | CR ---
Chest: Portable view of the chest was obtained. Comparison: Prior chest x-ray 03/14/21. Increased density is seen within the right lung base and within the right perihilar regions. Mild increased density is seen within the left lung base. Parenchymal densities have diminished from prior chest x-ray. Findings have not yet returned to baseline. Heart size and mediastinum are within normal limits. Bony structures show nothing acute. Osteopenia is noted. Impression: 1. Increased density within both sides of the chest which have significantly improved from prior chest x-ray. Findings have not yet returned to baseline. 2. Nothing acute is otherwise seen. Diagnostic code #3
--- NOTE | 2021-03-20 07:12 | CT ---
CT cervical spine Technique: Multiple axial sections were obtained from above C1 inferiorly to the bottom of T2. Reconstructed coronal and sagittal images were obtained. Comparison: No prior cervical spine imaging is available. Findings: Mild degenerative change is noted between the dens and anterior arch of C1. Scattered degenerative change is seen within the apophyseal joints. Vertebral body heights are maintained. Very minimal scattered disc space narrowing is seen. Severe right-sided neural foraminal stenosis is seen at C4-5 with mild to moderate left-sided neural foraminal stenosis at C4-5. Other neural foramina are felt to be fairly well patent. No fracture is seen. No abnormal subluxation is seen. Impression: 1. Degenerative change as noted above. 2. No acute abnormality is seen on noncontrast CT study of the cervical spine. Diagnostic code #2 I agree with preliminary report from [facility], finalized on 03/20/21, 5:35 AM CDT, code 1
--- NOTE | 2021-03-20 07:17 | CT ---
Head CT Technique: Multiple axial sections through the brain were obtained. Intravenous contrast was not utilized. Reconstructed coronal and sagittal images were obtained. Comparison: No prior head CT study is available. Findings: Ventricles along with basal cisterns and sulci over the convexities are mildly prominent. No abnormal parenchymal densities are seen. No evidence of intracranial hemorrhage is seen. No midline shift or mass-effect is seen. Bone window settings were reviewed. Diffuse mucosal thickening with diffuse osseous thickening is seen within the right maxillary sinus. Other visualized paranasal sinuses are clear. Visualized mastoid sinuses show slight mucosal thickening on the left side. No acute calvarial abnormality is appreciated. Impression: 1. Findings felt compatible with chronic right-sided maxillary sinusitis. 2. Slight mucosal thickening within the left mastoid sinus which is most likely chronic. 3. Mild generalized atrophy. No acute intracranial abnormality is seen on noncontrast head CT. Diagnostic code #2 I agree with preliminary report from [facility], finalized on 03/20/21, 5:31 AM CDT, code 1
--- NOTE | 2021-03-20 07:17 | CT ---
CT facial bones Technique: Multiple axial sections through the facial bones were obtained. Reconstructed coronal and sagittal images were obtained. Intravenous contrast was not utilized. Comparison: No prior facial bone study is available. Findings: Lucency is seen around the tooth roots of the anterior two left maxillary teeth. Scattered dental caries appear to be present. Severe mucosal thickening is seen throughout the right maxillary sinus. Osseous thickening is also noted around the right maxillary sinus. Findings are felt compatible with chronic sinusitis. Minimal mucosal thickening is seen within the left maxillary sinus. Other portions of the paranasal sinuses show nothing acute. Mild mucosal thickening is also partially seen within the left mastoid sinus. No acute fracture or other bony abnormality is seen. Impression: 1. Findings felt compatible with chronic right-sided maxillary sinusitis. Mild mucosal thickening within the left maxillary sinus. Mild mucosal thickening is partially visualized within the left mastoid sinus. 2. Dental findings compatible with tooth abscesses and dental caries. 3. No acute abnormality is otherwise seen on CT study of the facial bones. Diagnostic code #3 I agree with preliminary report from [facility], finalized on 03/20/21, 5:33 AM CDT, code 1
== END 2021-03-20 05:42 ==
LOC: JD.ED 03:34
DX: R55 Syncope and collapse (principal); R79.89 Other specified abnormal findings of blood chemistry; E78.00 Pure hypercholesterolemia, unspecified; I12.9 Hypertensive chronic kidney disease with stage 1 through stage 4 chronic kidney disease, or unspecified chronic kidney disease; N18.30 Chronic kidney disease, stage 3 unspecified; E66.9 Obesity, unspecified; Z68.30 Body mass index [BMI] 30.0-30.9, adult; Z79.82 Long term (current) use of aspirin; Z95.5 Presence of coronary angioplasty implant and graft; Z79.899 Other long term (current) drug therapy
CPT/HCPCS: 36415; 70450; 70450-26; 70486; 70486-26; 71045; 71045-26; 72125; 72125-26; 80053; 84484; 85025; 85610; 85730; 93005; 99285-25

== ENCOUNTER 2023-05-12 11:27 | Emergency (ER) | payer MEDICARE, MEDICAID ==
[2023-05-12 13:58] LABS: CORONAVIRUS COVID-19 NAA NEGATIVE (NEGATIVE); INFLUENZA A NAA NEGATIVE (NEGATIVE); RESPIRATORY SYNCYTIAL VIR NAA NEGATIVE (NEGATIVE)
[2023-05-12 14:46] LABS: BASOPHILS ABSOLUTE AUTO 0.1 K/mm3 (0.0-0.2); BASOPHILS PERCENT AUTO 0.8 % (0.0-1.0); EOSINOPHILS ABSOLUTE AUTO 0.2 K/mm3 (0.0-0.4); EOSINOPHILS PERCENT AUTO 2.8 % (0.0-6.0); HEMATOCRIT 43.3 % (42.0-52.0); HEMOGLOBIN 14.3 gm/dl (14.0-18.0); IMMATURE GRAN ABSOLUTE AUTO 0.04 K/mm3 (0.00-0.05); IMMATURE GRAN PERCENT AUTO 0.5 % (0.0-0.4); LYMPHOCYTES ABSOLUTE AUTO 1.3 K/mm3 (1.0-4.8); LYMPHOCYTES PERCENT AUTO 17.9 % (24.0-44.0); MEAN CORPUSCULAR HEMOGLOBIN 29.8 pg (28.0-32.0); MEAN CORPUSCULAR VOLUME 90.2 fl (83.0-99.0); MEAN PLATELET VOLUME 10.6 fl (9.4-12.4); MONOCYTES ABSOLUTE AUTO 0.9 K/mm3 (0.0-0.8); MONOCYTES PERCENT AUTO 11.8 % (0.0-8.0); NEUTROPHILS ABSOLUTE AUTO 4.9 K/mm3 (1.8-7.7); NEUTROPHILS PERCENT AUTO 66.2 % (41.0-71.0); PLATELET COUNT,PLT 179 K/mm3 (150-400); WHITE BLOOD CELL COUNT,WBC 7.45 K/mm3 (3.9-11.3)
[2023-05-12 15:09] LABS: A/G RATIO 0.6 (1-2); ALBUMIN 2.9 g/dl (3.4-5.0); ANION GAP 11.1 (5-15); BILIRUBIN TOTAL 0.4 mg/dL (0.2-1.0); BUN/CREATININE RATIO 15.5 (14-18); CALCIUM 8.5 mg/dL (8.5-10.1); CREATININE 2.2 mg/dL (0.7-1.3); EST CRCL DRUG DOSING (CG) 28.57 mL/min; POTASSIUM,K 4.1 mEq/L (3.5-5.1); PROTEIN TOTAL,TP 7.5 g/dl (6.4-8.2)
== END 2023-05-12 16:00 | disposition home or self-care (01) ==
LOC: JD.ED 11:27
DX: R42 Dizziness and giddiness (principal); I12.9 Hypertensive chronic kidney disease with stage 1 through stage 4 chronic kidney disease, or unspecified chronic kidney disease; N18.30 Chronic kidney disease, stage 3 unspecified; E78.00 Pure hypercholesterolemia, unspecified; K21.9 Gastro-esophageal reflux disease without esophagitis; E66.9 Obesity, unspecified; Z86.16 Personal history of COVID-19; Z79.82 Long term (current) use of aspirin; Z79.899 Other long term (current) drug therapy; Z20.822 Contact with and (suspected) exposure to COVID-19; Z68.33 Body mass index [BMI] 33.0-33.9, adult
CPT/HCPCS: 0241U; 36415; 70450; 80053; 85025; 99284